=== PATIENT | male | born 1960 | race Caucasian/White ===

== ENCOUNTER → 2016-03-04 | Day surgery (SDC) | payer OTHER ==
[~2016-03-04] VITALS: Ht 167.6 cm; Wt 77.1 kg
[~2016-03-04] MED LIST: ESCITALOPRAM20 MG PO; GUAFENESIN400 MG PO; MEDROL DOSEPAK1 PAC PO; PROTONIX 40MG T40 MG PO; PROVENTIL0.09 MG/A1 INH; ROBITUSSIN W/CO10 ML PO; TESSALON PERLE100 MG PO; TRAMADOL50 MG PO; VENTOLIN H0.09 MG/Ac INH
--- NOTE | 2016-03-04 09:45 | Operative Report ---
Operative/Inv Procedure Report Surgery Date: 03/04/16 Name of Procedure: Left open carpal tunnel release. Pre-Operative Diagnosis: Left carpal tunnel syndrome. Post-Operative Diagnosis: Same. Estimated Blood Loss: scant Surgeon/Bunch Breaker: NEPTALI URIAS MD Anesthesia: laryngeal mask airway Monitors: EKG/blood pressure/oxygen saturation. IV Fluids: Lactated Ringer's. Implants: None. Urine Output: None. Drains: None. Specimens: None. Microbiology: None. Tourniquet: 18 minutes at 275 mmHg. Complications: None known. Condition: Stable. Operative Indication: The patient is a 55-year-old male with a 1+ year history of progressive bilateral hand pain and numbness and tingling. His symptoms and clinical findings were consistent with median neuropathy of the bilateral wrists ( bilateral carpal tunnel syndrome). Electrodiagnostic studies (EMG/NCS) of the patient's bilateral upper extremities showed moderately severe median neuropathy of the bilateral wrists. I believe that this affected both the motor and sensory components of the bilateral median nerves consistent with moderately severe carpal tunnel syndrome. We did discuss the risks and benefits and expected outcomes of attempted nonoperative management with cockup wrist splinting and activity modification and possible carpal canal steroid injections and a trial of B complex vitamins. The patient ultimately failed conservative management and did not wish to continue with any further attempts at conservative management. We did therefore discuss the risks and benefits and expected outcomes of operative management with staged bilateral open carpal tunnel release surgeries. The patient did wish to move forward with the same. He did wish to start with his left hand and then proceed eventually to the right hand. All the patient's questions were answered at length. He did wish to proceed with surgery and surgical consent was obtained. Operative/Procedure Note Note: The patient was brought to the operating room and placed on the operating room in the supine position. All bony prominences were well padded. The patient was given a dose of IV antibiotics for infection prophylaxis. General anesthesia was then induced by the anesthesiologist. A well-padded tourniquet was applied to the proximal portion of the left arm. The left upper extremity was then prepped and draped in the usual sterile fashion. The palm was marked for a planned volar approach to the carpal canal. This included marking the skin with a skin marker across the palm in line with the ulnar border of the radially abducted thumb. A second skin marking was made with a skin marker along the palm in line with the ulnar border of the middle finger. The intersection of these two lines was anticipated to be roughly the distal margin of the underlying transverse carpal ligament. The skin was marked for the actual palmar skin incision using the patient's natural skin creases running as close as possible from the point of intersection of these two lines in a distal to proximal direction to the level of the distal volar wrist skin flexion crease. The extremity was exsanguinated and the pneumatic tourniquet was inflated to a pressure of 275 mm Hg. The skin incision was then made with a #15 scalpel blade. Sharp dissection was carried down through the skin and subcutaneous tissue with scalpel dissection. Hemostasis was achieved with a combination of manual pressure and electrocautery. Retractors were placed in to the wound and the longitudinal fibers of the palmar fascia were visualized. The palmar fascia was then divided under direct visualization longitudinally in line with the skin incision. Retractors were repositioned deeper in to the wound and the divided palmar fascia was scraped in a radial and ulnar direction off of the underlying transverse carpal ligament. The transverse carpal ligament was then divided longitudinally in line with the skin incision under direct visualization using a scalpel to divide the central portion of the ligament and then using blunt tipped scissors to complete the division of the proximal and distal margins of the ligament after spreading the soft tissues directly above and below the ligament at these locations to isolate the fibers of the ligament. Inspection of the contents of the carpal canal was possible after division of the transverse carpal ligament and teasing the undersurface of the transverse carpal ligament away from underlying adhesions to the contents of the carpal canal. Inspection of the Median nerve within the carpal canal showed notable hypo-vascularity of the nerve. Also noted was a moderate hourglass compression of the nerve through the central portion of the carpal canal. The surrounding flexor tendons showed proliferative thickened tenosynovitis with thickened tenosynovium. A limited tenosynovectomy of the tenosynovial tissue about the flexor tendons within the carpal canal was performed sharply with a scalpel. Inspection of the median nerve also showed a thickened fibrotic appearing epineurial tissue. This thickened fibrotic epineurial tissue appeared to be continuing to compression of the median nerve itself. I did therefore elected to perform a limited epineurotomy and aponeurectomy of the volar aspect of the Median nerve epineural tissue was performed using blunt tipped scissors to spread the volar epineural tissue. This visually decompressed the hourglass constriction of the nerve and was noted to improve the microvasculature to the nerve. With the carpal canal and Median nerve now adequately decompressed, our attention was directed to closure. The wound was irrigated multiple times with saline. The tourniquet was deflated and hemostasis was achieved once again with manual pressure and electrocautery. The soft tissue repair consisted of direct approximation of the skin margins using 3-0 Prolene placed in interrupted simple fashion. The wound was washed and dried. Adaptic dressing was placed over the suture line followed by a bulky gauze dressing followed by gauze wraps to hold the gauze dressing in place. The gauze dressings were then held in place with a 2 inch Sai bandage which was applied just snug enough to hold the dressings in place and to provide gentle compression to the palmar wound after surgery. The left upper extremity was placed into a Thierno pillow for elevation. The patient was awakened from general anesthesia and then transferred to the hospital stretcher and then brought to the recovery room in stable condition having tolerated the procedure well.
== END ==
LOC: STS 03:46
DX: G56.02 Carpal tunnel syndrome, left upper limb (principal); G56.01 Carpal tunnel syndrome, right upper limb; F17.200 Nicotine dependence, unspecified, uncomplicated
CPT/HCPCS: J0131; J0690; J2250

== ENCOUNTER → 2016-04-08 | Day surgery (SDC) | payer OTHER ==
[~2016-04-08] VITALS: Ht 167.6 cm; Wt 78.0 kg
--- NOTE | 2016-04-08 09:31 | Operative Report ---
Operative/Inv Procedure Report Surgery Date: 04/08/16 Name of Procedure: Right open carpal tunnel release. Pre-Operative Diagnosis: Right carpal tunnel syndrome. Post-Operative Diagnosis: Same. Estimated Blood Loss: scant Surgeon/Television Schedule Coordinator: NEPTALI URIAS MD Anesthesia: laryngeal mask airway Monitors: EKG/blood pressure/oxygen saturation IV Fluids: Lactated Ringer's. Implants: None. Urine Output: None. Drains: None. Specimens: None. Microbiology: None. Tourniquet: 15 minutes at 275 mmHg. Complications: None known. Condition: Stable. Operative Indication: The patient is a 55-year-old male with moderate to severe bilateral carpal tunnel syndrome who was indicated to undergo staged bilateral open carpal tunnel release surgeries. The patient did undergo contralateral left open carpal tunnel release surgery about 3-4 weeks ago. He was pleased with the way that went and the response with improvement of median nerve function following contralateral carpal tunnel release. He did wish to move forward now with carpal tunnel release for the ipsilateral right side as was originally planned. We did briefly once again discussed the risks and benefits and expected outcomes of nonoperative management which was felt to not likely be successful or satisfactory. We did discuss the same with respect once again to surgical intervention with open carpal tunnel release surgery. All the patient's questions were answered at length. He did wish to move forward with right carpal tunnel release surgery and surgical consent was obtained. Operative/Procedure Note Note: The patient was brought to the operating room and placed on the operating room in the supine position. All bony prominences were well padded. The patient was given a dose of IV antibiotics for infection prophylaxis. General anesthesia was then induced by the anesthesiologist. A well-padded tourniquet was applied to the proximal portion of the right arm. The right upper extremity was then prepped and draped in the usual sterile fashion. The palm was marked for a planned volar approach to the carpal canal. This included marking the skin with a skin marker across the palm in line with the ulnar border of the radially abducted thumb. A second skin marking was made with a skin marker along the palm in line with the ulnar border of the middle finger. The intersection of these two lines was anticipated to be roughly the distal margin of the underlying transverse carpal ligament. The skin was marked for the actual palmar skin incision using the patient's natural skin creases running as close as possible from the point of intersection of these two lines in a distal to proximal direction to the level of the distal volar wrist skin flexion crease. The extremity was exsanguinated and the pneumatic tourniquet was inflated to a pressure of 275 mm Hg. The skin incision was then made with a #15 scalpel blade. Sharp dissection was carried down through the skin and subcutaneous tissue with scalpel dissection. Hemostasis was achieved with a combination of manual pressure and electrocautery. Retractors were placed in to the wound and the longitudinal fibers of the palmar fascia were visualized. The palmar fascia was then divided under direct visualization longitudinally in line with the skin incision. Retractors were repositioned deeper in to the wound and the divided palmar fascia was scraped in a radial and ulnar direction off of the underlying transverse carpal ligament. The transverse carpal ligament was then divided longitudinally in line with the skin incision under direct visualization using a scalpel to divide the central portion of the ligament and then using blunt tipped scissors to complete the division of the proximal and distal margins of the ligament after spreading the soft tissues directly above and below the ligament at these locations to isolate the fibers of the ligament. With the transverse carpal ligament now divided, inspection of the contents of the carpal canal ensued and teasing the undersurface of the transverse carpal ligament away from adhesions to the contents of the carpal canal. Inspection of the Median nerve within the carpal canal showed a moderate hourglass constriction of the nerve. Also noted was some hypo-vascularity of the nerve. A limited epineurotomy of the volar aspect of the Median nerve epineural tissue was performed using blunt tipped scissors to spread the volar epineural tissue. This visually decompressed the hourglass constriction of the nerve and was noted to improve the microvasculature to the nerve. With the carpal canal and Median nerve now adequately decompressed, our attention was directed to closure. The wound was irrigated multiple times with saline. The tourniquet was deflated and hemostasis was achieved once again with manual pressure and electrocautery. The soft tissue repair consisted of direct approximation of the skin margins using 3-0 Prolene placed in interrupted simple fashion. The wound was washed and dried. Adaptic dressing was placed over the suture line followed by a bulky gauze dressing followed by gauze wraps to hold the gauze dressing in place. The gauze dressings were then held in place with a 2 inch Sai bandage which was applied just snug enough to hold the dressings in place and to provide gentle compression to the palmar wound after surgery. The right upper extremity was placed into a Thierno pillow for elevation. The patient was awakened from general anesthesia and then transferred to the hospital stretcher and then brought to the recovery room in stable condition having tolerated the procedure well.
== END ==
LOC: STS 03:02
DX: G56.01 Carpal tunnel syndrome, right upper limb (principal); F17.200 Nicotine dependence, unspecified, uncomplicated
CPT/HCPCS: J0131; J0690; J2250; J2405

== ENCOUNTER 2016-09-09 10:40 | Inpatient (IN) | payer OTHER ==
[~2016-09-09] VITALS: Ht 167.6 cm; Wt 74.8 kg
[~2016-09-09 10:40] MED LIST changes: +AUGMENTIN 500-1 EACH PO; +CHERATUSSIN AC118 M1 PO; +ESCITALOPRAM OX20 MG PO; -ESCITALOPRAM20 MG PO; +FLONASE ALLERG9.9 ML NAS; +TESSALON PERLE100 M1 PO; +VENTOLIN HFA18 GM INH; +VITAMIN D32000 UNI1 PO
--- NOTE | 2016-09-09 10:45 | NUR ---
55 Y/O FEMALE C/O 3 EPISODES OF RECTAL BLEEDING SINCE THIS AM; REPORTS CONSTANT LOWER ABDOMINAL PAIN SINCE THIS AM; STATES HE WIPED AFTER A BOWEL MOVEMENT AND NOTICED BRIGHT RED BLOOD ON TOILET PAPER. DENIES HX HEMMORHOIDS. CURRENTLY ON MEDICATIONS FOR "LUNG INFECTION". AFEBRILE
--- NOTE | 2016-09-09 11:04 | NUR ---
MARIA SMITH AT BEDSIDE FOR PT EVAL.
--- NOTE | 2016-09-09 11:06 | ED GI/GU/ABDOMINAL COMPLAINT ---
History of Present Illness General Chief Complaint: General Adult Stated Complaint: RECTAL BLEEDING Source: patient, old records Exam Limitations: no limitations Vital Signs & Intake/Output Vital Signs & Intake/Output Vital Signs Date Time Temp Pulse Resp B/P B/P Pulse O2 O2 Flow FiO2 Mean Ox Delivery Rate 09/09 1457 97.6 48 20 124/72 96 Room Air 09/09 1346 97.0 50 20 136/81 97 Room Air 09/09 1144 53 18 128/64 98 Room Air 09/09 1143 53 128/64 09/09 1042 96.7 60 18 137/82 99 Room Air Allergies Coded Allergies: NO KNOWN ALLERGIES (02/27/16) Reconcile Medications Albuterol Sulfate (Ventolin Hfa) 90 MCG HFA.AER.AD 2 PUF INH Q4-6 PRN PRN SHORTNESS OF BREATH Augmentin (Augmentin 500-125 Tablet) 500 MG-125 MG TABLET 1 TAB PO BID SINUSITIS Benzonatate (Tessalon Perle) 100 MG CAPSULE 1 CAP PO TID PRN COUGH Cholecalciferol (Vitamin D3) (Vitamin D3) 2,000 UNIT TABLET 1 TAB PO DAILY VITAMIN SUPPORT (Reported) Codeine Phosphate/Guaifenesi (Cheratussin AC Syrup) 10 MG-100 MG/5 ML LIQUID 10 ML PO QPM PRN COUGH Escitalopram Oxalate 20 MG TABLET 1 TAB PO DAILY PER PT SLEEP (Reported) Fluticasone Propionate (Flonase Allergy Relief) 50 MCG/ACTUATION SPRAY.SUSP 1 SPRAY NILDA DAILY PRN CONGESTION Triage Note: 55 Y/O FEMALE C/O 3 EPISODES OF RECTAL BLEEDING SINCE THIS AM; REPORTS CONSTANT LOWER ABDOMINAL PAIN SINCE THIS AM; STATES HE WIPED AFTER A BOWEL MOVEMENT AND NOTICED BRIGHT RED BLOOD ON TOILET PAPER. DENIES HX HEMMORHOIDS. CURRENTLY ON MEDICATIONS FOR "LUNG INFECTION". AFEBRILE Triage Nurses Notes Reviewed? yes Onset: Abrupt Duration: day(s): (1), constant Timing: recent history Quality/Severity: cramping Severity Numbers: 6 Location: generalized abdomen Radiation: no radiation Activities at Onset: none No Modifying Factors: none Associated Symptoms: denies HPI: 55-year-old male presents to ER for evaluation after he noticed 3 episodes of blood on the toilet paper after wiping having bowel movements this morning. Patient states he is been in his normal state of health is currently on antibiotics after being diagnosed with bronchitis and seen her last week. He states that yesterday he was feeling okay woke up this morning with crampy lower abdominal pain. He states that he had a bowel movement which was harder than normal however brown. He states that when he wiped he noticed blood on the toilet paper and this happened 3 times this morning. There is no blood in the toilet bowl or mixed in with his stool there is no diarrhea. He denies nausea vomiting. He's active smoker he denies alcohol use. His abdominal surgeries are significant for splenectomy appendectomy and hernia repair (ANJALI BOO) Past History Travel History Traveled to [place] past 21 day No Medical History Any Pertinent Medical History? 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 No (ANJALI BOO) Review of Systems Review of Systems Constitutional: Reports: see HPI. Comments Review of systems: See HPI, All other systems negative. Constitutional, no chills no fever, no malaise HEENT: No visual changes no sore throat no congestion Cardiovascular: No chest pain , no palpitation Skin: no rashes, no change in skin Respiratory: No dyspnea no cough no sputum GI: No nausea no vomiting, no diarrhea, no bloating/constipation : No dysuria Muscle skeletal: No joint pain, no joint swelling, no back pain, no neck pain, Neurologic: No numbness no headache Psych: No stress ,. Heme/endocrine: No bruising Immunology: No lymphadenopathy (ANJALI BOO) Physical Exam Physical Exam General Appearance: well developed/nourished, no apparent distress, alert Gastrointestinal: soft Comments: Well-developed well-nourished person in no acute distress HEENT: Normal EENT exam; PERRL, EOMI, HEAD is atraumatic. moist mucous membranes. Neck: Supple, normal range of motion Back: Nontender, no CVA tenderness. Full range of motion Cardiovascular: Regular rate and rhythms no murmurs rubs Respiratory No respiratory distress. Patient speaking in full complete sentences. Breath sounds clear to auscultation bilaterally: NO W/R/R Abdomen: Soft, periumbilical tenderness nondistended, no appreciable organomegaly. Normal bowel sounds. No rebound/guarding, No appreciable enlargement of the abdominal aorta, No ascites. Rectal: tender. Brown stool, Heme negative stool. No mass/hemorrhoid, no fissure. Extremity: No edema, full range of motion of extremities Neuro: Alert oriented x3, motor sensory normal, There were no obvious focal neurologic abnormalities. Skin: No appreciable rash on exposed skin, skin is warm and dry. Psych: Mood and affect is normal, memory and judgment is normal. Core Measures ACS in differential dx? No Severe Sepsis Present: No Septic Shock Present: No (SARAH SIFUENTES,ANJALI) Progress Differential Diagnosis: bowel obstruction, colon cancer, diverticulitis, hernia, hemorrhoids, ischemic bowel, inflamm bowel dis, perforated viscous, SBO, anal fissure,fistula Plan of Care: Orders Procedure Date/time Status CBC WITHOUT DIFFERENTIAL 09/10 0600 Active BASIC ELECTROLYTES PLUS BUN&CR 09/10 0600 Active Clear Liquid Diet 09/09 D Active CBC WITHOUT DIFFERENTIAL 09/09 2000 Active TYPE & SCREEN (NOT X-MATCH) 09/09 1450 Active Intake & Output 09/09 1419 Active Pathway - chart 09/09 1406 Active Pathway - chart 09/09 1403 Active House Staff 09/09 1403 Active Patient Data 09/09 1403 Active Code Status 09/09 1403 Active OXYGEN SETUP (GEN) 09/09 1328 Active Saline Lock 09/09 1328 Active Admit to inpatient 09/09 1328 Active Vital Signs 09/09 1328 Active Activity/Ambulation 09/09 1328 Active Code Status 09/09 1328 Complete Patient Data 09/09 1325 Active MISTAKE 09/09 1113 Active TROPONIN LEVEL 09/09 1113 Complete COMPREHENSIVE METABOLIC PANEL 09/09 1113 Complete CBC WITHOUT DIFFERENTIAL 09/09 1113 Complete EKG 09/09 1113 Active TRC EVALUATION (GEN) 09/09 UNK Active INCENTIVE SPIROMETRY TRX (GEN) 09/09 UNK Active CONTIN. POSITIVE AIRWAY PRESS 09/09 UNK Active VTE Mechanical Prophylaxis 09/09 UNK Active PHYSICIAN CONSULT 09/09 UNK Active Current Medications Sig/Rowena Start time Last Medication Dose Stop Time Status Admin Escitalopram Oxalate 20 MG DAILY 09/10 1000 AC (Lexapro) Nicotine 14 MG DAILY 09/10 1000 AC (Nicotine Cq) Ramelteon 8 MG AT BEDTIME 09/09 2200 AC (Rozerem) Senna 187 MG AT BEDTIME 09/09 220 AC (Senokot) Sodium Chloride 1,000 ML ONCE ONE 09/09 1500 AC (Normal Saline 0.9%) 09/10 0419 Docusate Sodium 100 MG BID 09/09 1448 AC (Colace) Acetaminophen 650 MG Q6P PRN 09/09 1415 AC (Tylenol) Morphine Sulfate 2 MG Q4P PRN 09/09 1415 AC (Morphine) Oxycodone/ 1 TAB Q6P PRN 09/09 1415 AC Acetaminophen (Percocet) Laboratory Tests 09/09/16 1123: Anion Gap 9, Estimated GFR > 60, BUN/Creatinine Ratio 16.7, Glucose 81, Calcium 9.4, Total Bilirubin 1.1, AST 24, ALT 37, Alkaline Phosphatase 69, Troponin I < 0.01, Total Protein 6.3, Albumin 3.8, Globulin 2.5, Albumin/Globulin Ratio 1.5, CBC w Diff NO MAN DIFF REQ, RBC 4.99, MCV 90.8, MCH 30.6, RDW 13.3, MPV 8.5, Gran % 61.4, Lymphocytes % 20.3 L, Monocytes % 13.5 H, Eosinophils % 4.1, Basophils % 0.7, Absolute Granulocytes 9.6 H, Absolute Lymphocytes 3.2, Absolute Monocytes 2.1 H, Absolute Eosinophils 0.6, Absolute Basophils 0.1, PUBS MCHC 33.7 Labs ordered old records reviewed CAT scan ordered IV fluids running orthostatics negative case discussed with Dr. ventura Patiently held his lab results CAT scan findings reports pain is slightly improved remains afebrile I discussed with him however the incidental findings on the CT including possible ileus discussed with him that I believe premature discharge would medically harmful or bleed bowel rest, given elevated white blood cell count 15,000 I discussed with them that I believe staying for admission for IV antibiotics possible GI consult would be beneficial which the patient is agreement with. Case discussed with Dr. capps will admit (SARAH SIFUENTES,ANJALI) Diagnostic Imaging: Viewed by Me: CT Scan. Discussed w/RAD: CT Scan. Radiology Impression: PATIENT: ANDREW JOSHUA PRESENT AGE: 55 PATIENT ACCOUNT NO: [id number] : 60 LOCATION: [facility] ORDERING PHYSICIAN: ANJALI SIFUENTES SERVICE DATE: 09/09/16 EXAM TYPE: CAT - CT ABD & PELVIS W IV CONTRAST EXAMINATION: CT ABDOMEN AND PELVIS WITH CONTRAST CLINICAL INFORMATION: Lower quadrant abdominal pain and cramping. Assess for diverticulitis. COMPARISON: CTA of the chest 10/03/2014. TECHNIQUE: Multidetector volumetric imaging was performed of the abdomen following administration of 95 mL of Optiray 320 intravenous contrast. Sagittal and coronal reformatted images were obtained on the technologist workstation. DLP: 282.89 mGy-cm. FINDINGS: LUNG BASES: There is dependent atelectasis in the lower lung zones bilaterally. There are no pericardial or pleural effusions. LIVER, GALLBLADDER, AND BILIARY TREE: The liver is normal in size, shape, and attenuation. No focal hepatic lesion or biliary ductal dilatation is present. The gallbladder is normal with no evidence of radiopaque gallstones, gallbladder wall thickening, or pericholecystic inflammatory changes. PANCREAS: The pancreas appears normal. SPLEEN: The spleen is again noted to be small. It is lobular and measures 4.3 x 2.7 cm with small calcifications. ADRENAL GLANDS: There is mild fullness of the left adrenal gland, similar compared to the prior study. The right adrenal gland appears normal. KIDNEYS, BLADDER AND URETERS: The kidneys are normal in size, shape, and attenuation. No hydronephrosis, hydroureter, or calculi are seen. There is no perinephric stranding. The urinary bladder is well -distended and appears normal. GASTROINTESTINAL TRACT: The stomach appears normal. The small bowel loops are mildly prominent and contain a small amount of fluid. The appendix is not discretely identified. The cecum is poorly distended. There are moderate diverticulosis changes in the distal descending colon with more extensive changes in the sigmoid colon. There is thickening of the wall of the proximal and mid sigmoid colon, but no significant increased density in the pericolonic fat is demonstrated. There are no focal fluid collections. PELVIS: The prostate gland is nonenlarged. There is no free fluid in the pelvis. LYMPHOVASCULAR STRUCTURES: There is no pelvic or retroperitoneal lymphadenopathy. The vascular structures are unremarkable. BONES AND SURROUNDING SOFT TISSUES: There are degenerative changes in the lower lumbar spine. There are no suspicious lytic or sclerotic foci. There are degenerative changes in the sacroiliac joints bilaterally. IMPRESSION: 1. There is thickening of the bowel wall in the proximal and mid sigmoid colon region with evidence of relatively extensive diverticulosis. However, there is no significant inflammatory change in the pericolonic fat. There is mild prominence of the small bowel loops in the mid abdomen and on the left, which may be consistent with focal ileus. The findings are most consistent with diverticulosis and mild diverticulitis changes , but an infiltrative process in the sigmoid colon cannot be excluded due to the thickening of the bowel wall. The should be correlated with the patient's clinical presentation. 2. The spleen is small and calcified, a chronic finding. DICTATED BY: SABINE CROOK MD DATE/TIME DICTATED:09/09/161241 INCOME TAX EXPERT :MEENAKSHI DATE/TIME TRANSCRIBED:09/09/161241 CONFIDENTIAL, DO NOT COPY WITHOUT APPROPRIATE AUTHORIZATION. <Electronically signed in Other Vendor System> SIGNED BY: SABINE CROOK MD 09/09/16 1304 Initial ED EKG: normal intervals, normal p-waves, normal QRS complex, normal sinus rhythm (70) (ANJALI BOO) Departure Departure Time of Disposition: 1315 Disposition: STILL A PATIENT Condition: Stable Clinical Impression Primary Impression: Diverticulitis Referrals: SHAHIDA BAUER MD (PCP/Family) Departure Forms: Customer Survey General Discharge Information Admission Note Spoke With: ANDREEA CAPPS MD Documentation of Exam: Documentation of any treatments & extenuating circumstances including Concerns Regarding Discharge (functional status, medication knowledge or non-compliance, living conditions, etc.) that warrant an admission rather than observation: [IV antibiotics IV fluids and bowel rest GI consult premature discharge medically harmful (ANJALI BOO) PA/MASONRY CONTRACTOR Co-Sign Statement Statement: ED Attending supervision documentation- x I saw and evaluated the patient. I have also reviewed all the pertinent lab results and diagnostic results. I agree with the findings and the plan of care as documented in the PA's/MASONRY CONTRACTOR's documentation. [] I have reviewed the ED Record and agree with the PA's/MASONRY CONTRACTOR's documentation. [] Additions or exceptions (if any) to the PAs/MASONRY CONTRACTOR's note and plan are summarized below: [] (JOSE CASTRO,ANEL)
--- NOTE | 2016-09-09 11:25 | NUR ---
BLOOD DRAWN AND SENT-SST,LAV,BLUE,OWENS,PINK. EKG DONE BY CATRACHITA RM.
[2016-09-09 11:37] LABS: ABSOLUTE BASOPHIL COUNT 0.1 /CUMM (0.0-0.2); ABSOLUTE EOSINOPHIL COUNT 0.6 /CUMM (0.0-0.7); ABSOLUTE GRANULOCYTE CT 9.6 /CUMM (1.4-6.5); ABSOLUTE LYMPH COUNT 3.2 /CUMM (1.2-3.4); ABSOLUTE MONOCYTE COUNT 2.1 /CUMM (0.10-0.60); BASOPHIL % 0.7 % (0.0-2.0); EOSINOPHIL % 4.1 % (0-5); GRANULOCYTE % 61.4 % (42.2-75.2); HEMATOCRIT 45.3 % (42-52); MEAN CORPUSCULAR HGB 30.6 PG (27.0-31.0); MEAN CORPUSCULAR HGB CONC 33.7 G/DL (33.0-37.0); MEAN CORPUSCULAR VOLUME 90.8 FL (80.0-94.0); MEAN PLATELET VOLUME 8.5 FL (7.4-10.4); PLATELET COUNT 298 /CUMM (130-400); RBC DISTRIBUTION WIDTH 13.3 % (11.5-14.5); RED BLOOD CELL CT 4.99 /CUMM (4.70-6.10); WHITE BLOOD CELL COUNT 15.6 /CUMM (4.8-10.8)
--- NOTE | 2016-09-09 12:31 | NUR ---
PT TO AND FROM CAT SCAN BY STRETCHER.
--- NOTE | 2016-09-09 13:04 | CT SCAN REPORT ---
EXAMINATION: CT ABDOMEN AND PELVIS WITH CONTRAST CLINICAL INFORMATION: Lower quadrant abdominal pain and cramping. Assess for diverticulitis. COMPARISON: CTA of the chest 10/03/2014. TECHNIQUE: Multidetector volumetric imaging was performed of the abdomen following administration of 95 mL of Optiray 320 intravenous contrast. Sagittal and coronal reformatted images were obtained on the technologist workstation. DLP: 282.89 mGy-cm. FINDINGS: LUNG BASES: There is dependent atelectasis in the lower lung zones bilaterally. There are no pericardial or pleural effusions. LIVER, GALLBLADDER, AND BILIARY TREE: The liver is normal in size, shape, and attenuation. No focal hepatic lesion or biliary ductal dilatation is present. The gallbladder is normal with no evidence of radiopaque gallstones, gallbladder wall thickening, or pericholecystic inflammatory changes. PANCREAS: The pancreas appears normal. SPLEEN: The spleen is again noted to be small. It is lobular and measures 4.3 x 2.7 cm with small calcifications. ADRENAL GLANDS: There is mild fullness of the left adrenal gland, similar compared to the prior study. The right adrenal gland appears normal. KIDNEYS, BLADDER AND URETERS: The kidneys are normal in size, shape, and attenuation. No hydronephrosis, hydroureter, or calculi are seen. There is no perinephric stranding. The urinary bladder is well-distended and appears normal. GASTROINTESTINAL TRACT: The stomach appears normal. The small bowel loops are mildly prominent and contain a small amount of fluid. The appendix is not discretely identified. The cecum is poorly distended. There are moderate diverticulosis changes in the distal descending colon with more extensive changes in the sigmoid colon. There is thickening of the wall of the proximal and mid sigmoid colon, but no significant increased density in the pericolonic fat is demonstrated. There are no focal fluid collections. PELVIS: The prostate gland is nonenlarged. There is no free fluid in the pelvis. LYMPHOVASCULAR STRUCTURES: There is no pelvic or retroperitoneal lymphadenopathy. The vascular structures are unremarkable. BONES AND SURROUNDING SOFT TISSUES: There are degenerative changes in the lower lumbar spine. There are no suspicious lytic or sclerotic foci. There are degenerative changes in the sacroiliac joints bilaterally. IMPRESSION: 1. There is thickening of the bowel wall in the proximal and mid sigmoid colon region with evidence of relatively extensive diverticulosis. However, there is no significant inflammatory change in the pericolonic fat. There is mild prominence of the small bowel loops in the mid abdomen and on the left, which may be consistent with focal ileus. The findings are most consistent with diverticulosis and mild diverticulitis changes, but an infiltrative process in the sigmoid colon cannot be excluded due to the thickening of the bowel wall. The should be correlated with the patient's clinical presentation. 2. The spleen is small and calcified, a chronic finding.
--- NOTE | 2016-09-09 13:25 | NUR ---
PT MEDICATED WITH TORADOL AND ROCEPHINE PER EMAR. PHARMACY CALLED FOR FLAGYL. 2ND LITER OF NS INFUSING PER EMAR.
--- NOTE | 2016-09-09 13:37 | History & Physical ---
SHAGUFTA CASTRO,[facility] 09/09/16 1336: General Information and HPI MD Statement: I have seen and personally examined ANDREW SANDERS and documented this H&P. The patient is a 55 year old M who presented with a patient stated chief complaint of [blood per rectum]. Source of Information: patient Exam Limitations: no limitations History of Present Illness: Mr. Sanders is a 55-year-old gentleman with a PMH of tobacco dependence, insomnia, SALEEM on nocturnal CPAP, history of adenomatous polyps and internal hemorrhoids on colonoscopy 2010 who presents with complaints of bright red blood per rectum and upper respiratory symptoms. Patient wants in his usual state of health until this morning when he started having the sudden lower abdominal discomfort and an urge to go to the bathroom. He noticed some blood on the toilet paper when he wiped himself after having a bowel movement 3 times this morning. The stool was harder than usual but denies melena. Also denies any fevers, chills, nausea, vomiting, diarrhea, significant weight changes or recent travel history. Reports an episode of lightheadedness when coming to the hospital, which lasted for 5 minutes and then resolved on its own. Denies any loss of consciousness. Patient also reports difficulty breathing.shortness of breath, sore throat and productive cough with significant post nasal drip for the past 6 weeks but for the past past 3 weeks the sypmtoms has been worsening. He gets these violent coughing spells that makes him lightheaded. Last Thursday he went to the urgent care clinic and was prescribed Augmentin 500mg twice a day, Flonase, Ventolin, albuterol, cough suppressant and lozenges. Allergies/Medications Allergies: Coded Allergies: NO KNOWN ALLERGIES (02/27/16) Home Med list Albuterol Sulfate (Ventolin Hfa) 90 MCG HFA.AER.AD 2 PUF INH Q4-6 PRN PRN SHORTNESS OF BREATH Augmentin (Augmentin 500-125 Tablet) 500 MG-125 MG TABLET 1 TAB PO BID SINUSITIS Benzonatate (Tessalon Perle) 100 MG CAPSULE 1 CAP PO TID PRN COUGH Cholecalciferol (Vitamin D3) (Vitamin D3) 2,000 UNIT TABLET 1 TAB PO DAILY VITAMIN SUPPORT (Reported) Codeine Phosphate/Guaifenesi (Cheratussin AC Syrup) 10 MG-100 MG/5 ML LIQUID 10 ML PO QPM PRN COUGH Escitalopram Oxalate 20 MG TABLET 1 TAB PO DAILY PER PT SLEEP (Reported) Fluticasone Propionate (Flonase Allergy Relief) 50 MCG/ACTUATION SPRAY.SUSP 1 SPRAY NILDA DAILY PRN CONGESTION Past History Travel History Traveled to [place] past 21 day No Medical History Neurological: NONE EENT: NONE Cardiovascular: hyperlipidemia Respiratory: obstructive sleep apnea Gastrointestinal: NONE Hepatic: NONE Renal: NONE Musculoskeletal: NONE Psychiatric: depression Endocrine: NONE Blood Disorders: NONE Cancer(s): NONE 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 EENTM: Reports: no symptoms. Cardiovascular: Reports: no symptoms. Respiratory: Reports: cough, short of breath, sputum production. GI: Reports: abdominal pain, bloody stool. Genitourinary: Reports: no symptoms. Musculoskeletal: Reports: no symptoms. Skin: Reports: no symptoms. Neurological/Psychological: Reports: no symptoms. Hematologic/Endocrine: Reports: no symptoms. Immunologic/Allergic: Reports: no symptoms. All Other Systems: Reviewed and Negative Exam & Diagnostic Data Last 24 Hrs of Vital Signs/I&O Vital Signs Date Time Temp Pulse Resp B/P B/P Pulse O2 O2 Flow FiO2 Mean Ox Delivery Rate 09/09 1834 Room Air 09/09 1600 Room Air 09/09 1519 Room Air 09/09 1457 97.6 48 20 124/72 96 Room Air 09/09 1346 97.0 50 20 136/81 97 Room Air 09/09 1144 53 18 128/64 98 Room Air 09/09 1143 53 128/64 09/09 1042 96.7 60 18 137/82 99 Room Air Intake & Output 09/09 1600 09/09 0800 09/09 0000 Intake Total 2000 Output Total Balance 2000 Intake, IV 1999 Patient 166 lb Weight Weight Reported by Patient Measurement Method Physical Exam General Appearance Alert, Oriented X3, Cooperative Skin No Rashes, No Breakdown HEENT Atraumatic, PERRLA, EOMI, Mucous Membr. moist/pink Neck Supple, No JVD, No thryomegaly Cardiovascular Regular Rate, Normal S1, Normal S2, No Murmurs Lungs Clear to Auscultation, Normal Air Movement Abdomen Normal Bowel Sounds, Soft, No Hepatospenomegaly, No Masses, Tenderness in suprapubic region, prominent surgical scars in RLQ and LUQ Extremities No Clubbing, No Cyanosis, No Edema, Normal Pulses Last 24 Hrs of Labs/Meir: Laboratory Tests 09/09/16 1123: Anion Gap 9, Estimated GFR > 60, BUN/Creatinine Ratio 16.7, Glucose 81, Calcium 9.4, Total Bilirubin 1.1, AST 24, ALT 37, Alkaline Phosphatase 69, Troponin I < 0.01, Total Protein 6.3, Albumin 3.8, Globulin 2.5, Albumin/Globulin Ratio 1.5, CBC w Diff NO MAN DIFF REQ, RBC 4.99, MCV 90.8, MCH 30.6, RDW 13.3, MPV 8.5, Gran % 61.4, Lymphocytes % 20.3 L, Monocytes % 13.5 H, Eosinophils % 4.1, Basophils % 0.7, Absolute Granulocytes 9.6 H, Absolute Lymphocytes 3.2, Absolute Monocytes 2.1 H, Absolute Eosinophils 0.6, Absolute Basophils 0.1, PUBS MCHC 33.7 Assessment/Plan Assessment: Mr. Sanders is a 55-year-old gentleman with a PMH of tobacco dependence, insomnia, SALEEM on nocturnal CPAP, history of adenomatous polyps and internal hemorrhoids on colonoscopy 2010 who presents with complaints of bright red blood per rectum and upper respiratory symptoms. Assessment/Plan: Lower GI bleed. Most likely secondary to internal hemorrhoids versus diverticular bleed. * CT shows mild acute diverticulitis. Will hold antibiotics for now. In case of fever, worsening abdominal pain or persistent leukocytosis we'll start the patient on antibiotics. We'll monitor H&H for now and start the patient on clear liquid diet. * GI consulted awaiting recommendations, * Patient has been typed and screened. * Leukocytosis likely secondary to reactive response in the setting of GI bleed. Upper respiratory infection: * Will start the patient on albuterol Inhaler PRN. Obstructive sleep apnea: * On CPAP History of tobacco dependence: 1 PPD x 21 years * Nicotine patch 14 mg DVT prophylaxis: ALPs Full code As Ranked By This Provider Problem List: 1. Diverticulitis 2. Upper respiratory disease 3. Cough Core Measures/Miscellaneous Acute Coronary Syndrome ACS Diagnosis: No Cerebrovascular Accident CVA/TIA Diagnosis: No Congestive Heart Failure CHF Diagnosis: No VTE (View Protocol) VTE Risk Factors: Acute medical illness, Age > 40, Smoking [facility] V[facility] prophylaxis d/t: No contraindications No VTE Pharm Prophylaxis d/t: Active bleeding VTE Diagnosis: No VTE Type: NONE VTE Confirmed by (Test): NONE Sepsis (View Protocol) Severe Sepsis Present: No Septic Shock Septic Shock Present: No Miscellaneous Documentation Attending Case Discussed With: BAKARI JOHNSON MD Primary Care Physician: SHAHIDA BAUER MD Patient sees these Specialists . Level of Patient Care: General Medicine LEONARDO BAL 09/09/16 1425: Resident Review Statement Resident Statement: examined this patient, discussed with recruiting internship, agreed with recruiting internship, reviewed EMR data (avail), discussed with case mgmt, reviewed images Other Findings: Mr. Sanders is a 55-year-old gentleman with a PMH of tobacco dependence, insomnia, SALEEM on nocturnal CPAP, history of adenomatous polyps and internal hemorrhoids on colonoscopy 2010 who presents with complaints of bright red blood per rectum and upper respiratory symptoms. Over the past 6 weeks he reports productive sputum cough with yellow sputum mostly in the mornings that has worsened over the past 3 weeks to what he describes as difficulty breathing/shortness of breath most noticeable in warm/ she made whether. During this time he also endorses a sore throat for which she went to the urgent treatment Center last Thursday and was prescribed Augmentin 500 mg BID Flonase, Ventolin, albuterol, cough suppressant and lozenges. This morning while at work she experienced sudden onset lower abdominal pain localized below the umbilicus that he describes as a generalized discomfort with the urge to use the bathroom. He reports having a bowel movement that was harder than normal with noticeable blood with wiping. This happened a total of 3 times prompting him to come to the ED. VS admission: BP 137/82, HR 60, RR 18, SPO2 99% on RA, T 96.7 Pertinent physical exam findings: AAO, in no acute distress. Mucous membranes pink and moist. RRR, normal S1/S2. Lungs CTA BL. Normal bowel sounds with tenderness to light palpation over the suprapubic region. Well-healed surgical incision sites over the left upper quadrant and right lower quadrants of the abdomen. Pertinent labs: WBC 15.6, H&H 15.3/45.3, platelets 298K, sodium 138, potassium 4.4, chloride 105, bicarbonate 24, BUN/CR 15/0.9, glucose 81 CT abdomen pelvis: Thickening of the bowel wall in the proximal and mid sigmoid colon region with evidence of relative extensive diverticulosis. No significant inflammatory change in the pericolonic fat. Mild evidence of small bowel loops in the mid abdomen and on the left which may be consistent with focal ileus. Findings are most consistent diverticulosis and mild diverticulitis changes but an infiltrative process in the sigmoid colon cannot be excluded due to the thickening of the bowel wall. Spleen is small and calcified, chronic finding. Problem list: 1. Bright red blood per rectum 2. Diverticulosis/diverticulitis 3. Elevated leukocytosis 4. History of tobacco dependence 5. SALEEM on nocturnal CPAP Plan: * Full admission to general medicine for management of lower GI bleed. Based on presentation this is likely secondary to internal hemorrhoids versus diverticular bleed * In the context of equivocal findings on CAT scan, will defer initiating antimicrobial therapy for diverticulitis at this time. If patient does have worsening abdominal pain or fevers, would obtain blood cultures, start patient empirically on ceftriaxone and metronidazole * GI consult for recommendations of GI bleed. Patient has been typed and screened. CBC Q8 clear liquids at this time pending GI recommendations * Leukocytosis likely secondary to reactive response in the setting of GI bleed. Close monitoring for fevers * History of tobacco dependence at 1 PPD. Nicotine patch 14 mg * DVT prophylaxis: ALPs * Full code BAKARI JOHNSON 09/10/16 1646: Attending MD Review Statement Attending Statement Attending MD Statement: examined this patient, discuss w/resident/PA/DIE KEEPER, agreed w/resident/PA/DIE KEEPER, reviewed EMR data (avail), discussed with nursing, discussed with case mgmt Attending Assessment/Plan: please see my separate attending note for more details.
--- NOTE | 2016-09-09 13:38 | NUR ---
FLAGYL INFUSING PER EMAR.
--- NOTE | 2016-09-09 14:12 | NUR ---
PT TO ROOM 211 BED 1
--- NOTE | 2016-09-09 14:19 | NUR ---
REPORT GIVEN TO RECEIVING RN ANGELIQUE TO 2NB
--- NOTE | 2016-09-09 14:28 | NUR ---
IVF AND ANTIBIOTICS COMPLETE. FLUSHED WITHOUT DIFFICULTY. AMBULATORY TO BATHROOM WITH STRONG STEADY GAIT. OFFERS NO COMPLAINTS AT THIS TIME
[2016-09-09 14:57] VITALS: BP 124/72
--- NOTE | 2016-09-09 15:00 | NUR ---
NSG NOTE: PATIENT ARRIVED TO FLOOR FROM ED AT 1500 VIA STRETCHER ACCOMPANIED BY DISTRIBUTION; PATIENT A/OX3; RA; VS COMPLETED BY MST; PATIENT STATES PAIN IS 5/10 TO LOWER ABDOMEN; PATIENT WEARING GLASSES; PPRESENT AT THE BEDSIDE; ORIENTED TO ROOM; CALL WOMACK IN REACH; WILL CONT TO MONITOR
--- NOTE | 2016-09-09 16:36 | Admission Certification ---
Admission Certification Certification Statement - As attending physician, I certify that at the time of - admission, based on clinical presentation, severity of - symptoms, need for further diagnostic testing and - therapeutic interventions, and risk of adverse outcomes - without in-hospital treatment, in my clinical assessment, - this patient requires an acute hospital stay for a minimum - of two nights or longer. I have also considered psychsocial - factors such as support system, advanced age, financial - issues, cognitive issues, and failed out-patient treatments, - past re-admission history, safety of patient, and lack of - compliance as applicable. Specific rationale supporting this admission is: Lower GI bleed, ? acute diverticulitis
--- NOTE | 2016-09-09 16:43 | PN- Att Addend ---
Attending MD Review Statement Attending Statement Attending MD Statement: examined this patient, discuss w/resident/PA/ELECTROTYPE CASTER, agreed w/resident/PA/ELECTROTYPE CASTER, discussed with family, reviewed EMR data (avail), discussed w/ nursing Attending Assessment/Plan: 55-year-old male with a PMH of tobacco dependence with 20 Plus pack year history , SALEEM on nocturnal CPAP, history of adenomatous polyps and internal hemorrhoids on colonoscopy 2010 who presents with complaints of bright red blood per rectum and upper respiratory symptoms. Pts URI symptoms started few weeks ago and was started on last thursday on flonase, augmentin, cough medications and proventil by ER. Pt had hard BM this am post which he had BRBPR, pt has had 3 BM this am. Pt normally is not constipated and goes 2 times a day. BRBPR- lower GI bleed- likely secondary to internal hemorrhoids. Less likely diverticular bleed. would get GI consult. monitor H/H. CT finding of mild acute diverticulitis. If pts abdominal pain does not improve or wbc does not resolve , will start pt on iv abx tomorrow am. d/w pt the importance of quitting smoking, he also has exposure to passive smoking as his smokes. d/w pt the care plan.
[2016-09-09 21:00] LABS: ABSOLUTE BASOPHIL COUNT 0.1 /CUMM (0.0-0.2); ABSOLUTE GRANULOCYTE CT 8.3 /CUMM (1.4-6.5); BASOPHIL % 0.5 % (0.0-2.0); EOSINOPHIL % 6.3 % (0-5); HEMATOCRIT 43.9 % (42-52); MEAN CORPUSCULAR HGB 30.4 PG (27.0-31.0); MEAN CORPUSCULAR HGB CONC 33.1 G/DL (33.0-37.0); MEAN CORPUSCULAR VOLUME 91.9 FL (80.0-94.0); PLATELET COUNT 292 /CUMM (130-400); RBC DISTRIBUTION WIDTH 13.7 % (11.5-14.5); RED BLOOD CELL CT 4.78 /CUMM (4.70-6.10); WHITE BLOOD CELL COUNT 15.4 /CUMM (4.8-10.8)
[2016-09-09 22:21] VITALS: BP 106/70
[2016-09-10 04:50] VITALS: BP 112/64
--- NOTE | 2016-09-10 07:59 | Cons- Gastroenterology ---
General Information and HPI Consulting Request Date of Consult: 09/10/16 (MD [facility]ILLE[facility]/GASTROENTEROLOGY) Requested By: ELIZABETH CASTRO,BAKARI Cortez Reason for Consult: Hematochezia Source of Information: patient History of Present Illness: 55-year-old white male who has had more than 1 week of respiratory symptoms including congestion and cough, and has been treated for both sinusitis and upper respiratory infection, with multiple antibiotics. Normally he has 2 formed bowel movements per day, no abdominal pain, rare heartburn, and no blood per rectum. His appetite has been normal and weight stable. He had a screening colonoscopy by Dr. Palacio 2010, without adenomatous polyps, and with internal hemorrhoids. There was no description of diverticulosis. 2 days ago the patient had slight constipation with difficulty evacuating. Yesterday morning he had 3 hard/small bowel movements, some straining, and blood on the toilet paper each time, but not seen in the bowl or on the stool. He had one further such movement with slight blood in the hospital. He also developed lower abdominal pain, worse with defecation, but continuous. The pain is still there this morning, but has improved. There has been no associated dysuria or upper abdominal pain.. Yesterday, the patient did have some subjective fever, with chills and sweats, and dizziness. Allergies/Medications Allergies: Coded Allergies: NO KNOWN ALLERGIES (02/27/16) Home Med List: Albuterol Sulfate (Ventolin Hfa) 90 MCG HFA.AER.AD 2 PUF INH Q4-6 PRN PRN SHORTNESS OF BREATH Augmentin (Augmentin 500-125 Tablet) 500 MG-125 MG TABLET 1 TAB PO BID SINUSITIS Benzonatate (Tessalon Perle) 100 MG CAPSULE 1 CAP PO TID PRN COUGH Cholecalciferol (Vitamin D3) (Vitamin D3) 2,000 UNIT TABLET 1 TAB PO DAILY VITAMIN SUPPORT (Reported) Codeine Phosphate/Guaifenesi (Cheratussin AC Syrup) 10 MG-100 MG/5 ML LIQUID 10 ML PO QPM PRN COUGH Escitalopram Oxalate 20 MG TABLET 1 TAB PO DAILY PER PT SLEEP (Reported) Fluticasone Propionate (Flonase Allergy Relief) 50 MCG/ACTUATION SPRAY.SUSP 1 SPRAY NILAD DAILY PRN CONGESTION Current Medications: Current Medications Sig/Rowena Start time Last Medication Dose Route Stop Time Status Admin Acetaminophen 650 MG Q6P PRN 09/09 1415 AC PO Albuterol Sulfate 3 ML Q4P PRN 09/09 1845 AC INH Ceftriaxone Sodium 0 .STK-MED ONE 09/09 1326 DC .ROUTE Ceftriaxone Sodium 1,000 MG ONCE ONE 09/09 1315 DC 09/09 IV 09/09 1316 1325 Docusate Sodium 100 MG BID 09/09 1448 AC 09/09 PO 2240 Enoxaparin Sodium 40 MG DAILY 09/09 1403 DC SC Escitalopram Oxalate 20 MG DAILY 09/10 1000 AC PO Ketorolac 0 .STK-MED ONE 09/09 1325 DC Tromethamine .ROUTE Ketorolac 30 MG ONCE ONE 09/09 1315 DC 09/09 Tromethamine IV 09/09 1316 1325 Metronidazole 500 MG ONCE ONE 09/09 1315 DC 09/09 N/A 1 UNIT IV 09/09 1414 1336 Morphine Sulfate 2 MG Q4P PRN 09/09 1415 AC 09/10 IV 0441 Nicotine 14 MG DAILY 09/10 1000 AC 09/09 TOP 1848 Oxycodone/ 1 TAB Q6P PRN 09/09 1415 AC 09/09 Acetaminophen PO 1852 Ramelteon 8 MG AT BEDTIME 09/09 2200 AC 09/09 PO 2240 Senna 187 MG AT BEDTIME 09/09 2200 AC 09/09 PO 2240 Sodium Chloride 1,000 ML ONCE ONE 09/09 1500 DC 09/09 IV 09/10 0419 1544 Sodium Chloride 1,000 ML BOLUS ONE 09/09 1315 DC 09/09 IV 09/09 1414 1325 Sodium Chloride 1,000 ML BOLUS ONE 09/09 1115 DC 09/09 IV 09/09 1214 1125 Past History Travel History Traveled to [place] past 21 day No Medical History Blood Transfusion Hx: No Neurological: NONE EENT: NONE Cardiovascular: hyperlipidemia Respiratory: obstructive sleep apnea Gastrointestinal: NONE Hepatic: NONE Renal: NONE Musculoskeletal: NONE Psychiatric: depression Endocrine: NONE Blood Disorders: NONE Cancer(s): NONE 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 Home Services at Home: None Smoking Status: Current Everyday Smoker (1 PPD) ETOH Use: occasional use Review of Systems Review of Systems Constitutional: Reports: diaphoresis. Denies: unexplained weight loss. EENTM: Denies: icterus, epistaxis. Cardiovascular: Denies: chest pain, edema. Respiratory: Reports: cough. Denies: sputum production. GI: Reports: see HPI. Genitourinary: Denies: dysuria, hematuria. Musculoskeletal: Denies: muscle stiffness, neck pain. Skin: Denies: jaundice, lesions. Neurological/Psychological: Denies: cognitive dysfunction, confusion. Hematologic/Endocrine: Denies: bruising, bleeding, polyuria, polydipsia. Exam & Diagnostic Data Vital Signs and I&O Vital Signs Date Time Temp Pulse Resp B/P B/P Pulse O2 O2 Flow FiO2 Mean Ox Delivery Rate 09/10 0450 98.0 50 14 112/64 97 CPAP 09/10 0031 57 95 09/09 2310 48 95 09/09 2221 97.9 45 20 106/70 97 Room Air 09/09 1834 Room Air 09/09 1600 Room Air 09/09 1519 Room Air 09/09 1457 97.6 48 20 124/72 96 Room Air 09/09 1346 97.0 50 20 136/81 97 Room Air 09/09 1144 53 18 128/64 98 Room Air 09/09 1143 53 128/64 09/09 1042 96.7 60 18 137/82 99 Room Air Intake & Output 09/10 0400 09/09 1600 09/09 0400 09/08 1600 09/08 0400 Intake Total 167 798 2692 Output Total 200 Balance 463 692 0134 Intake, IV 307 543 8249 Intake, Oral 120 Output, Urine 200 Patient 166 lb Weight Weight Reported by Patient Measurement Method Physical Exam: Well-developed, well-nourished white male no apparent distress. Alert and oriented with normal cognition. Skin with multiple tattoos. No jaundice, rash, lesion, petechiae/purpura. No adenopathy. Sclera anicteric. Oropharynx normal. Tongue normal. Neck supple without thyromegaly or mass. Heart regular rhythm without murmur. Lungs clear anterolaterally. Abdomen is soft and nondistended with normal bowel sounds; there is tenderness in the left lower quadrant and suprapubic area, with no associated mass or fullness. There is no organomegaly. Extremities without clubbing, cyanosis or edema. Pulses are normal. Results Pertinent Lab Results: Laboratory Tests 09/10 09/09 0640 2009 Chemistry Sodium Pending Potassium Pending Chloride Pending Carbon Dioxide Pending Anion Gap Pending BUN Pending Creatinine Pending BUN/Creatinine Ratio Pending Hematology CBC w Diff Pending NO MAN DIFF REQ WBC (4.8 - 10.8 /CUMM) Pending 15.4 H RBC (4.70 - 6.10 /CUMM) Pending 4.78 Hgb (14.0 - 18.0 G/DL) Pending 14.6 Hct (42 - 52 %) Pending 43.9 MCV (80.0 - 94.0 FL) Pending 91.9 MCH (27.0 - 31.0 PG) Pending 30.4 RDW (11.5 - 14.5 %) Pending 13.7 Plt Count (130 - 400 /CUMM) Pending 292 MPV (7.4 - 10.4 FL) Pending 9.0 Gran % (42.2 - 75.2 %) 54.0 Lymphocytes % (20.5 - 51.1 %) 26.0 Monocytes % (1.7 - 9.3 %) 13.2 H Eosinophils % (0 - 5 %) 6.3 H Basophils % (0.0 - 2.0 %) 0.5 Absolute Granulocytes (1.4 - 6.5 /CUMM) 8.3 H Absolute Lymphocytes (1.2 - 3.4 /CUMM) 4.0 H Absolute Monocytes (0.10 - 0.60 /CUMM) 2.0 H Absolute Eosinophils (0.0 - 0.7 /CUMM) 1.0 Absolute Basophils (0.0 - 0.2 /CUMM) 0.1 PUBS MCHC (33.0 - 37.0 G/DL) Pending 33.1 09/09 1123 Chemistry Sodium (137 - 145 mmol/L) 138 Potassium (3.5 - 5.1 mmol/L) 4.4 Chloride (98 - 107 mmol/L) 105 Carbon Dioxide (22 - 30 mmol/L) 24 Anion Gap (5 - 16) 9 BUN (9 - 20 mg/dL) 15 Creatinine (0.7 - 1.2 mg/dL) 0.9 Estimated GFR (>60 ml/min) > 60 BUN/Creatinine Ratio (7 - 25 %) 16.7 Glucose (65 - 99 mg/dL) 81 Calcium (8.4 - 10.2 mg/dL) 9.4 Total Bilirubin (0.2 - 1.3 mg/dL) 1.1 AST (17 - 59 U/L) 24 ALT (21 - 72 U/L) 37 Alkaline Phosphatase (< 127 U/L) 69 Troponin I (<0.11 ng/ml) < 0.01 Total Protein (6.3 - 8.2 g/dL) 6.3 Albumin (3.5 - 5.0 g/dL) 3.8 Globulin (1.9 - 4.2 gm/dL) 2.5 Albumin/Globulin Ratio (1.1 - 2.2 %) 1.5 Hematology CBC w Diff NO MAN DIFF REQ WBC (4.8 - 10.8 /CUMM) 15.6 H RBC (4.70 - 6.10 /CUMM) 4.99 Hgb (14.0 - 18.0 G/DL) 15.3 Hct (42 - 52 %) 45.3 MCV (80.0 - 94.0 FL) 90.8 MCH (27.0 - 31.0 PG) 30.6 RDW (11.5 - 14.5 %) 13.3 Plt Count (130 - 400 /CUMM) 298 MPV (7.4 - 10.4 FL) 8.5 Gran % (42.2 - 75.2 %) 61.4 Lymphocytes % (20.5 - 51.1 %) 20.3 L Monocytes % (1.7 - 9.3 %) 13.5 H Eosinophils % (0 - 5 %) 4.1 Basophils % (0.0 - 2.0 %) 0.7 Absolute Granulocytes (1.4 - 6.5 /CUMM) 9.6 H Absolute Lymphocytes (1.2 - 3.4 /CUMM) 3.2 Absolute Monocytes (0.10 - 0.60 /CUMM) 2.1 H Absolute Eosinophils (0.0 - 0.7 /CUMM) 0.6 Absolute Basophils (0.0 - 0.2 /CUMM) 0.1 PUBS MCHC (33.0 - 37.0 G/DL) 33.7 Imaging/Other Studies: CT scan of the abdomen and pelvis, yesterday: IMPRESSION: 1. There is thickening of the bowel wall in the proximal and mid sigmoid colon region with evidence of relatively extensive diverticulosis. However, there is no significant inflammatory change in the pericolonic fat. There is mild prominence of the small bowel loops in the mid abdomen and on the left, which may be consistent with focal ileus. The findings are most consistent with diverticulosis and mild diverticulitis changes, but an infiltrative process in the sigmoid colon cannot be excluded due to the thickening of the bowel wall. The should be correlated with the patient's clinical presentation. 2. The spleen is small and calcified, a chronic finding. Assessment/Plan Assessment/Recommendations: 1. Hematochezia. Minor, outlet bleeding (on toilet tissue only), with no drop in hemoglobin. Likely represents hemorrhoidal bleeding. Differential diagnosis includes colitis, although there was no blood admixed with the stool. 2. Lower abdominal pain. Leukocytosis, although this may be secondary to respiratory infection. CT scan suggests possible uncomplicated diverticulitis, and the pain and tenderness support this. Differential includes colitis, perhaps antibiotic associated. The pain has improved overnight. Recommendations * Continue clear liquid diet today * Continue broad spectrum antibiotics * No investigation of hematochezia is necessary * Stool for C. difficile toxin Copies To: SHAHIDA BAUER MD Consult Acknowledgment - Thank you for your consult request.
[2016-09-10 08:12] LABS: ABSOLUTE BASOPHIL COUNT 0.1 /CUMM (0.0-0.2); ABSOLUTE EOSINOPHIL COUNT 0.9 /CUMM (0.0-0.7); ABSOLUTE GRANULOCYTE CT 10.9 /CUMM (1.4-6.5); ABSOLUTE LYMPH COUNT 2.8 /CUMM (1.2-3.4); ABSOLUTE MONOCYTE COUNT 1.8 /CUMM (0.10-0.60); BASOPHIL % 0.4 % (0.0-2.0); EOSINOPHIL % 5.3 % (0-5); GRANULOCYTE % 66.3 % (42.2-75.2); HEMATOCRIT 44.4 % (42-52); MEAN CORPUSCULAR HGB 30.5 PG (27.0-31.0); MEAN CORPUSCULAR HGB CONC 32.8 G/DL (33.0-37.0); MEAN CORPUSCULAR VOLUME 93.1 FL (80.0-94.0); MEAN PLATELET VOLUME 8.9 FL (7.4-10.4); PLATELET COUNT 289 /CUMM (130-400); RBC DISTRIBUTION WIDTH 13.6 % (11.5-14.5); RED BLOOD CELL CT 4.77 /CUMM (4.70-6.10); WHITE BLOOD CELL COUNT 16.4 /CUMM (4.8-10.8)
--- NOTE | 2016-09-10 14:22 | PN- Att Addend ---
Attending MD Review Statement Attending Statement Attending MD Statement: examined this patient, discuss w/resident/PA/IT WEB DEVELOPMENT CONSULTANT, agreed w/resident/PA/IT WEB DEVELOPMENT CONSULTANT, reviewed EMR data (avail), discussed w/nursing, discussed w/ case mgmt Attending Assessment/Plan: pt seen and examined at bedside. still having high wbc and still having abdominal pain. started back on ceftriaxone and flagyl. d/w pt the care plan. if getting better by tomorrow will advance diet.
--- NOTE | 2016-09-10 14:25 | PN- Housestaff ---
Subjective Follow-up For: Diverticulitis Subjective: She was complaining of the lower abdomen pain 6/10 in intensity. Also complaining of cough and chills at night. Denies fever, nausea, vomiting, shortness of breath or chest pain. Review of Systems Constitutional: Reports: no symptoms. EENTM: Reports: no symptoms. Cardiovascular: Reports: no symptoms. Respiratory: Reports: cough. Gastrointestinal: Reports: abdominal pain. Genitourinary: Reports: no symptoms. Musculoskeletal: Reports: no symptoms. Skin: Reports: no symptoms. Neurological/Psychological: Reports: no symptoms. Hematologic/Endocrine: Reports: no symptoms. Immunologic/Allergic: Reports: no symptoms. Objective Last 24 Hrs of Vital Signs/I&O Vital Signs Date Time Temp Pulse Resp B/P B/P Pulse O2 O2 Flow FiO2 Mean Ox Delivery Rate 09/10 1446 98.0 64 16 110/70 96 Room Air 09/10 0800 Room Air 09/10 0450 98.0 50 14 112/64 97 CPAP 09/10 0031 57 95 09/09 2310 48 95 09/09 2221 97.9 45 20 106/70 97 Room Air 09/09 1834 Room Air Intake & Output 09/10 1600 09/10 0800 09/10 0000 Intake Total 1920 375 420 Output Total 200 Balance 1920 375 220 Intake, IV 120 375 300 Intake, Oral 1800 120 Number 2 Bowel Movements Output, Urine 200 Physical Exam General Appearance: Alert, Oriented X3, Cooperative Skin: No Rashes, No Breakdown HEENT: Atraumatic, PERRLA, EOMI, Mucous Membr. moist/pink Cardiovascular: Regular Rate, Normal S1, Normal S2, No Murmurs Lungs: Clear to Auscultation, Normal Air Movement Abdomen: Normal Bowel Sounds, Soft, No Hepatospenomegaly, No Masses, tenderness in left lower quadrant. Current Medications: Current Medications Sig/Rowena Start time Last Medication Dose Route Stop Time Status Admin Acetaminophen 650 MG Q6P PRN 09/09 1415 AC PO Albuterol Sulfate 3 ML Q4P PRN 09/09 1845 AC INH Ceftriaxone Sodium 1,000 MG DAILY 09/10 1037 AC 09/10 IV 1342 Docusate Sodium 100 MG BID 09/09 1448 AC 09/10 PO 0853 Escitalopram Oxalate 20 MG DAILY 09/10 1000 AC 09/10 PO 0853 Metronidazole 500 MG Q8 09/10 1400 AC 09/10 N/A 1 UNIT IV 1342 Metronidazole 500 MG DAILY 09/10 1037 DC N/A 1 UNIT IV Morphine Sulfate 2 MG Q4P PRN 09/09 1415 AC 09/10 IV 1511 Nicotine 14 MG DAILY 09/10 1000 AC 09/09 TOP 1848 Oxycodone/ 1 TAB Q6P PRN 09/09 1415 AC 09/09 Acetaminophen PO 1852 Ramelteon 8 MG AT BEDTIME 09/09 2200 AC 09/09 PO 2240 Senna 187 MG AT BEDTIME 09/09 2200 AC 09/09 PO 2240 Sodium Chloride 1,000 ML ONCE ONE 09/09 1500 DC 09/09 IV 09/10 0419 1544 Last 24 Hrs of Lab/Meir Results Last 24 Hrs of Labs/Mics: Laboratory Tests 09/10/16 0640: Anion Gap 7, Estimated GFR > 60, BUN/Creatinine Ratio 12.0, CBC w Diff NO MAN DIFF REQ, RBC 4.77, MCV 93.1, MCH 30.5, RDW 13.6, MPV 8.9, Gran % 66.3, Lymphocytes % 16.8 L, Monocytes % 11.2 H, Eosinophils % 5.3 H, Basophils % 0.4, Absolute Granulocytes 10.9 H, Absolute Lymphocytes 2.8, Absolute Monocytes 1.8 H, Absolute Eosinophils 0.9, Absolute Basophils 0.1, PUBS MCHC 32.8 L 09/09/16 2010: CBC w Diff NO MAN DIFF REQ, RBC 4.78, MCV 91.9, MCH 30.4, RDW 13.7, MPV 9.0, Gran % 54.0, Lymphocytes % 26.0, Monocytes % 13.2 H, Eosinophils % 6.3 H, Basophils % 0.5, Absolute Granulocytes 8.3 H, Absolute Lymphocytes 4.0 H, Absolute Monocytes 2.0 H, Absolute Eosinophils 1.0, Absolute Basophils 0.1, PUBS MCHC 33.1 Assessment/Plan Assessment: Lower GI bleed. Most likely secondary to internal hemorrhoids versus diverticular bleed. * CT shows mild acute diverticulitis. Patient has persistent leukocytosis and was started on IV ceftriaxone and Flagyl. * We'll monitor H&H for now. * Patient on clear liquid diet. * Patient has been typed and screened. * Pain control with morphine. Upper respiratory infection: * Will start the patient on albuterol Inhaler PRN. Obstructive sleep apnea: * On CPAP History of tobacco dependence: 1 PPD x 21 years * Nicotine patch 14 mg Problem List: 1. Diverticulitis 2. Bronchitis Pain Ratin Pain Location: Left lower quadrant Pain Goal: Remain pain free Pain Plan: Pain pathway Tomorrow's Labs & Rationales: CBC(diverticulitis)
[2016-09-10 14:46] VITALS: BP 110/70
[2016-09-10 22:20] VITALS: BP 112/76
[2016-09-10 22:50] VITALS: BP 114/68
[2016-09-11 06:13] VITALS: BP 110/70
--- NOTE | 2016-09-11 07:23 | PN- Housestaff ---
Subjective Follow-up For: Diverticulitis Subjective: Patient was complaining of night sweats and chills this morning. He woke up drenched in sweats at 11pm last night. His abdominal pain has improved. He had 2 bowel movements yesterday which the patient describes as liquidy and greasy. Denies any fever, nausea, vomiting, shortness of breath. Review of Systems Constitutional: Reports: no symptoms. EENTM: Reports: no symptoms. Cardiovascular: Reports: no symptoms. Respiratory: Reports: see HPI. Gastrointestinal: Reports: see HPI. Genitourinary: Reports: no symptoms. Musculoskeletal: Reports: no symptoms. Skin: Reports: no symptoms. Neurological/Psychological: Reports: no symptoms. Hematologic/Endocrine: Reports: no symptoms. Immunologic/Allergic: Reports: no symptoms. Objective Last 24 Hrs of Vital Signs/I&O Vital Signs Date Time Temp Pulse Resp B/P B/P Pulse O2 O2 Flow FiO2 Mean Ox Delivery Rate 09/11 0613 98.0 64 18 110/70 91 Room Air 09/11 0051 96 09/10 2250 98.3 63 18 114/68 95 Room Air 09/10 2220 98.2 55 18 112/76 96 Room Air 09/10 1600 Room Air 09/10 1446 98.0 64 16 110/70 96 Room Air Intake & Output 09/11 1600 09/11 0800 09/11 0000 Intake Total 200 20 Output Total 200 Balance 0 20 Intake, IV 200 20 Output, Stool 200 Physical Exam General Appearance: Alert, Oriented X3, Cooperative Skin: No Rashes, No Breakdown, No Significant Lesion HEENT: Atraumatic, PERRLA, EOMI, Mucous Membr. moist/pink Neck: Supple, No JVD, No thryomegaly Cardiovascular: Regular Rate, Normal S1, Normal S2, No Murmurs Lungs: Clear to Auscultation, Normal Air Movement Abdomen: Normal Bowel Sounds, Soft, No Hepatospenomegaly, No Masses, tenderness in left lower quadrant. Extremities: No Clubbing, No Cyanosis, No Edema, Normal Pulses, No Tenderness/ Swelling Current Medications: Current Medications Sig/Rowena Start time Last Medication Dose Route Stop Time Status Admin Acetaminophen 650 MG Q6P PRN 09/09 1415 AC PO Albuterol Sulfate 3 ML Q4P PRN 09/09 1845 AC INH Ceftriaxone Sodium 1,000 MG DAILY 09/10 1037 AC 09/11 IV 1015 Docusate Sodium 100 MG BID 09/09 1448 AC 09/11 PO 1015 Escitalopram Oxalate 20 MG DAILY 09/10 1000 AC 09/11 PO 1015 Metronidazole 500 MG Q8 09/10 1400 AC 09/11 N/A 1 UNIT IV 0657 Morphine Sulfate 2 MG Q4P PRN 09/09 1415 AC 09/11 IV 1239 Nicotine 14 MG DAILY 09/10 1000 AC 09/11 TOP 1015 Oxycodone/ 1 TAB Q6P PRN 09/09 1415 AC 09/09 Acetaminophen PO 1852 Polyethylene Glycol 17 GM DAILY 09/11 1000 AC PO Polyethylene Glycol 17 GM ONCE ONE 09/10 2345 DC 09/11 PO 09/10 2346 0136 Ramelteon 8 MG AT BEDTIME 09/09 2200 AC 09/10 PO 2329 Senna 187 MG AT BEDTIME 09/09 2200 AC 09/10 PO 2329 Last 24 Hrs of Lab/Meir Results Last 24 Hrs of Labs/Mics: Laboratory Tests 09/11/16 0840: Hemoglobin A1c 5.6, CBC w Diff NO MAN DIFF REQ, RBC 4.88, MCV 91.9, MCH 30.4, RDW 13.6, MPV 8.9, Gran % 69.4, Lymphocytes % 16.6 L, Monocytes % 11.6 H, Eosinophils % 1.9, Basophils % 0.5, Absolute Granulocytes 12.6 H, Absolute Lymphocytes 3.0, Absolute Monocytes 2.1 H, Absolute Eosinophils 0.3, Absolute Basophils 0.1, PUBS MCHC 33.0 Microbiology 09/11 0858 STOOL: Clostridium difficile Toxin A & B - COMP Assessment/Plan Assessment: Mr Walls is a 59-year-old gentleman with a PMH of osteoarthritis, chronic pain, torn left knee meniscus, torn left rotator cuff, previous history of thyroid nodule, left tibiofibular fracture who presents with complaints of abdominal pain after a recent diagnosis of diverticulitis. Lower GI bleed. Most likely secondary to internal hemorrhoids versus diverticular bleed. * CT shows mild acute diverticulitis. Patient has persistent leukocytosis and was started on IV ceftriaxone and Flagyl. * We'll monitor H&H for now. * Patient on Full liquid diet. * Patient has been typed and screened. * Pain control with morphine. * Patient had 2 bowel movements yesterday, that were soft and greasy. Reports some melena but denies any fresh blood. Stool was guaiac negative and was sent for C. difficile toxin, will follow. Night sweats: * Last night patient woke up with night sweats and chills. According to him he has been having these night sweats for the past 6-8 months. Will do CXR, with outpatient follow up with his PCP for further workup. Upper respiratory infection: * Patient complains of dry cough, more pronounced in the morning. He thinks it' s because of the CPAP he uses at night. * Patient on albuterol Inhaler PRN. Obstructive sleep apnea: * On CPAP History of tobacco dependence: 1 PPD x 21 years * Nicotine patch 14 mg DVT prophylaxis: ALPs Full code Problem List: 1. Diverticulitis 2. Bronchitis 3. Cough Pain Ratin Pain Location: Left lower quadrant Pain Goal: Remain pain free Pain Plan: Pain Pathway Tomorrow's Labs & Rationales: CBC(diverticulitis)
--- NOTE | 2016-09-11 08:58 | RADIOLOGY REPORT ---
EXAMINATION: XR PORTABLE CHEST CLINICAL INFORMATION: Assess for lung consolidation COMPARISON: Chest x-ray from 09/03/2016 TECHNIQUE: Portable frontal view of the chest was obtained. FINDINGS: Heart size and pulmonary vascularity is within normal limits. The lungs are normally expanded and grossly clear. No focal consolidation or atelectasis is seen at this time. Some linear opacity in the right perihilar region is most likely related to overlapping vessels and rib. . There is no pneumothorax or pleural effusion. There is no change compared to the previous examination. IMPRESSION: Normally expanded and grossly clear lungs with no acute findings.
[2016-09-11 09:31] LABS: ABSOLUTE BASOPHIL COUNT 0.1 /CUMM (0.0-0.2); ABSOLUTE EOSINOPHIL COUNT 0.3 /CUMM (0.0-0.7); ABSOLUTE GRANULOCYTE CT 12.6 /CUMM (1.4-6.5); ABSOLUTE MONOCYTE COUNT 2.1 /CUMM (0.10-0.60); BASOPHIL % 0.5 % (0.0-2.0); EOSINOPHIL % 1.9 % (0-5); GRANULOCYTE % 69.4 % (42.2-75.2); HEMATOCRIT 44.9 % (42-52); MEAN CORPUSCULAR HGB 30.4 PG (27.0-31.0); MEAN CORPUSCULAR VOLUME 91.9 FL (80.0-94.0); MEAN PLATELET VOLUME 8.9 FL (7.4-10.4); PLATELET COUNT 290 /CUMM (130-400); RBC DISTRIBUTION WIDTH 13.6 % (11.5-14.5); RED BLOOD CELL CT 4.88 /CUMM (4.70-6.10); WHITE BLOOD CELL COUNT 18.2 /CUMM (4.8-10.8)
[2016-09-11 15:14] VITALS: BP 108/80
--- NOTE | 2016-09-11 15:55 | Discharge Summary ---
See Addendum Visit Information Visit Dates Admission Date: 09/09/16 Discharge Date: 09/12/16 Hospital Course Course Attending Physician: ELIZABETH CASTRO,BAKARI Cortez Primary Care Physician: ILZETTE CASTRO,[facility] Course: Mr. Sanders is a 55-year-old gentleman with a PMH of tobacco dependence, insomnia, SALEEM on nocturnal CPAP, history of adenomatous polyps and internal hemorrhoids on colonoscopy 2010 who presents with complaints of bright red blood per rectum and upper respiratory symptoms. Over the past 6 weeks he reports productive sputum cough with yellow sputum mostly in the mornings that has worsened over the past 3 weeks to what he describes as difficulty breathing/shortness of breath most noticeable in warm/ she made whether. During this time he also endorses a sore throat for which she went to the urgent treatment Center last Thursday and was prescribed Augmentin 500 mg BID Flonase, Ventolin, albuterol, cough suppressant and lozenges. This morning while at work she experienced sudden onset lower abdominal pain localized below the umbilicus that he describes as a generalized discomfort with the urge to use the bathroom. He reports having a bowel movement that was harder than normal with noticeable blood with wiping. This happened a total of 3 times prompting him to come to the ED. VS admission: BP 137/82, HR 60, RR 18, SPO2 99% on RA, T 96.7 Pertinent physical exam findings: AAO, in no acute distress. Mucous membranes pink and moist. RRR, normal S1/S2. Lungs CTA BL. Normal bowel sounds with tenderness to light palpation over the suprapubic region. Well-healed surgical incision sites over the left upper quadrant and right lower quadrants of the abdomen. Pertinent labs: WBC 15.6, H&H 15.3/45.3, platelets 298K, sodium 138, potassium 4.4, chloride 105, bicarbonate 24, BUN/CR 15/0.9, glucose 81 CT abdomen pelvis: Thickening of the bowel wall in the proximal and mid sigmoid colon region with evidence of relative extensive diverticulosis. No significant inflammatory change in the pericolonic fat. Mild evidence of small bowel loops in the mid abdomen and on the left which may be consistent with focal ileus. Findings are most consistent diverticulosis and mild diverticulitis changes but an infiltrative process in the sigmoid colon cannot be excluded due to the thickening of the bowel wall. Spleen is small and calcified, chronic finding. Patient was admitted to general medicine floor and treated for the following problems; Problem list: 1. Bright red blood per rectum 2. Diverticulosis/diverticulitis 3. Elevated leukocytosis 4. History of tobacco dependence 5. SALEEM on nocturnal CPAP Lower GI bleed. Most likely secondary to internal hemorrhoids versus diverticular bleed. Patient was started on IV ceftriaxone and Flagyl. He remained afebrile with persistent leukocytosis. Patient was made nothing by mouth and started on IV fluids with gradual advancement of diet. His H&H was monitored which remained stable. Patient was also tested for C. difficile after having multiple episodes of loose stools which came back negative. Due to persistent leukocytosis CT abdomen and pelvis was done to rule out any abscess, which came back negative. Patient was sent home on by mouth Flagyl and Ciprofloxacillin x 8 days with instructions to follow-up with PCP and Dr. Curry as an outpatient. Night sweats: * Patient reports waking up night sweats for the past 6-8 months. CXR was done which came back normal, was instructed to follow up with his PCP for further workup if he continues to have the night sweats. Upper respiratory infection: * Patient was on albuterol Inhaler PRN. Obstructive sleep apnea: * On CPAP History of tobacco dependence: 1 PPD x 21 years * Nicotine patch 14 mg DVT prophylaxis: ALPs Patient is Full code Allergies: Coded Allergies: NO KNOWN ALLERGIES (02/27/16) Disposition Summary Disposition Principal Diagnosis: Diverticulitis Additional Diagnosis: Obstructive sleep apnea Discharge Disposition: home or self care Discharge Instructions General Discharge Information Code Status: Full Code Patient's Diet: Regular Patient's Activity: As tolerated Follow-Up Instructions/Appts: Please follow-up with your PCP within a week of discharge. Please follow up with Dr. Curry within a week after discharge. Please avoid drinking alcohol while on Flagyl. Medications at Discharge Discharge Medications: Stop taking the following medications: Augmentin (Augmentin 500-125 Tablet) 500 MG-125 MG TABLET ORAL TWICE DAILY Qty = 20 Continue taking these medications: Escitalopram Oxalate (Escitalopram Oxalate) 20 MG TABLET 1 Tablet ORAL AT BEDTIME Qty = 30 Comments: Last Taken: 09/12/16 Time: 1120 Cholecalciferol (Vitamin D3) (Vitamin D3) 2,000 UNIT TABLET 1 Tablet ORAL DAILY Comments: NOT GIVEN IN HOSPITAL Albuterol Sulfate (Ventolin Hfa) 90 MCG HFA.AER.AD 2 Puff Inhale through mouth EVERY 4-6 HOURS NEEDED as needed for SHORTNESS OF BREATH Qty = 1 Comments: NOT GIVEN IN HOSPITAL Benzonatate (Tessalon Perle) 100 MG CAPSULE 1 Capsule ORAL THREE TIMES DAILY as needed for COUGH Qty = 21 Comments: NOT GIVEN IN HOSPITAL Fluticasone Propionate (Flonase Allergy Relief) 50 MCG/ACTUATION SPRAY.SUSP 1 [place] In the nose DAILY as needed for CONGESTION Qty = 1 Comments: NOT GIVEN IN HOSPITAL Codeine Phosphate/Guaifenesi (Cheratussin AC Syrup) 10 MG-100 MG/5 ML LIQUID 10 Milliliters ORAL Every night as needed for COUGH Qty = 100 Comments: NOT GIVEN IN HOSPITAL Start taking the following new medications: Metronidazole (Flagyl) 500 MG TABLET 1 Tablet ORAL THREE TIMES DAILY Qty = 24 No Refills Ciprofloxacin HCl (Cipro) 500 MG TABLET 1 Tablet ORAL TWICE DAILY Qty = 16 No Refills Morphine Sulfate (Morphine Sulfate) 15 MG TABLET 1 Tablet ORAL DAILY NEEDED as needed for ABDOMINAL PAIN Qty = 10 No Refills Comments: NOT GIVEN IN HOSPITAL Copies To: LIEZTTE CASTRO,SHAHIDA
--- NOTE | 2016-09-11 17:11 | Patient Discharge Instructions ---
Discharge Instructions General Discharge Information You were seen/treated for: Diverticulitis Watch for these problems: Worsening abdominal pain, nausea, vomiting, diarrhea Special Instructions: Please follow-up with your PCP within a week after discharge. Please follow up with your outside sales professional(Dr. Curry) within 1 month after discharge. Please avoid drinking alcohol while on Flagyl. Diet Continue normal diet: Yes Activity Full Activity/No Limits: Yes Acute Coronary Syndrome Inclusion Criteria At DC or during hospital stay patient has or had the following: ACS DIAGNOSIS No Discharge Core Measures Meds if any: Prescribed or Continued at Discharge Meds if any: NOT Prescribed or Continued at Discharge Congestive Heart Failure Inclusion Criteria At DC or during hospital stay patient has or had the following: CHF DIAGNOSIS No Discharge Core Measures Meds if any: Prescribed or Continued at Discharge Meds if any: NOT Prescribed or Continued at Discharge Cerebrovascular accident Inclusion Criteria At DC or during hospital stay patient has or had the following: CVA/TIA Diagnosis No Discharge Core Measures Meds if any: Prescribed or Continued at Discharge Meds if any: NOT Prescribed or Continued at Discharge Venous thromboembolism Inclusion Criteria VTE Diagnosis No VTE Type NONE VTE Confirmed by (Test) NONE Discharge Core Measures - Per Current guidelines, there needs to be overlap - treatment for the first 5 days of Warfarin therapy. - If discharged on Warfarin prior to 5 days of - overlap therapy, the patient will need to be - assessed for post discharge needs including - *Post discharge parental anticoagulation - *Warfarin and/or parental anticoagulation education - *Follow up date to check INR post discharge At least 5 days overlap therapy as Inpatient No Meds if any: Prescribed or Continued at Discharge Note: Overlap Therapy is Warfarin and Anticoagulant Meds if any: NOT Prescribed or Continued at Discharge
--- NOTE | 2016-09-11 17:39 | PN- Att Addend ---
Attending MD Review Statement Attending Statement Attending MD Statement: examined this patient, discuss w/resident/PA/ADVERTISING ACCOUNT EXECUTIVE, agreed w/resident/PA/ADVERTISING ACCOUNT EXECUTIVE, reviewed EMR data (avail), discussed w/nursing Attending Assessment/Plan: pt seen and examined at bedside. acute diverticulitis- still having high wbc but abdominal pain is better. Had some diarrhea- so c diff was sent will f/u on that. on ceftriaxone and flagyl. d/w pt the care plan. if getting better by tomorrow will advance diet and possible dc tomorrow.
[2016-09-11 22:36] VITALS: BP 112/78
[2016-09-12 06:51] VITALS: BP 120/72
--- NOTE | 2016-09-12 07:24 | PN- Housestaff ---
See Addendum Subjective Follow-up For: Diverticulitis Subjective: Patient reports improvement in his abdominal pain and has been able to tolerate his food well. Denies any fever, chills, vomiting, diarrhea, shortness of breath, chest pain or overnight events. Review of Systems Constitutional: Reports: no symptoms. EENTM: Reports: no symptoms. Cardiovascular: Reports: no symptoms. Respiratory: Reports: cough. Gastrointestinal: Reports: no symptoms. Genitourinary: Reports: no symptoms. Musculoskeletal: Reports: no symptoms. Skin: Reports: no symptoms. Neurological/Psychological: Reports: no symptoms. Hematologic/Endocrine: Reports: no symptoms. Immunologic/Allergic: Reports: no symptoms. Objective Last 24 Hrs of Vital Signs/I&O Vital Signs Date Time Temp Pulse Resp B/P B/P Pulse O2 O2 Flow FiO2 Mean Ox Delivery Rate 09/12 1521 100.3 60 16 118/76 95 Room Air 09/12 0651 98.4 56 20 120/72 97 Room Air 09/11 2236 98.1 64 20 112/78 97 Room Air Intake & Output 09/12 1600 09/12 0800 09/12 0000 Intake Total 100 Output Total Balance 100 Intake, IV 100 Physical Exam General Appearance: Alert, Oriented X3, Cooperative Skin: No Rashes, No Breakdown HEENT: Atraumatic, PERRLA, EOMI, Mucous Membr. moist/pink Cardiovascular: Regular Rate, Normal S1, Normal S2, No Murmurs, Gallops, Rubs Lungs: Clear to Auscultation, Normal Air Movement Abdomen: Normal Bowel Sounds, Soft, No Hepatospenomegaly, No Masses, tenderness in left lower quadrant. Neurological: Normal Gait, Normal Speech, Strength at 5/5 X4 Ext, Normal Tone, Sensation Intact, Cranial Nerves 3-12 NL, Reflexes 2+ Assessment/Plan Assessment: Mr Walls is a 59-year-old gentleman with a PMH of osteoarthritis, chronic pain, torn left knee meniscus, torn left rotator cuff, previous history of thyroid nodule, left tibiofibular fracture who presents with complaints of abdominal pain after a recent diagnosis of diverticulitis. Lower GI bleed. Most likely secondary to internal hemorrhoids versus diverticular bleed. * CT shows mild acute diverticulitis. Patient had leukocytosis and was started on IV ceftriaxone and Flagyl. * We'll monitor H&H for now. * Patient on Full liquid diet. * Patient has been typed and screened. * Pain control with morphine. * Patient is much improved clinically but still has persistent leukocytosis. Will do a CT abdomen and pelvis with and without contrast to rule out any abscesses. If CT comes back normal we will discharge the patient on oral antibiotics and outpatient follow-up with PCP within a week. Diarrhea: Resolved. Patient had 2 bowel movements, that were soft and greasy. Reports some melena but denies any fresh blood. Stool was guaiac negative and C. difficile toxin is negative. Night sweats: * Last night patient woke up with night sweats and chills. According to him he has been having these night sweats for the past 6-8 months.CXR was done which came back normal, outpatient follow up with his PCP for further workup. Upper respiratory infection: * Patient complains of dry cough, more pronounced in the morning. He thinks it' s because of the CPAP he uses at night. * Patient on albuterol Inhaler PRN. Obstructive sleep apnea: * On CPAP History of tobacco dependence: 1 PPD x 21 years * Nicotine patch 14 mg DVT prophylaxis: ALPS Full code Problem List: 1. Diverticulitis 2. Upper respiratory disease 3. Cough Pain Ratin Pain Location: Left lower quadrant Pain Goal: Remain pain free Pain Plan: Pain pathway Tomorrow's Labs & Rationales: None(possible discharge today)
[2016-09-12 08:27] LABS: ABSOLUTE BASOPHIL COUNT 0.1 /CUMM (0.0-0.2); ABSOLUTE EOSINOPHIL COUNT 0.4 /CUMM (0.0-0.7); ABSOLUTE GRANULOCYTE CT 14.1 /CUMM (1.4-6.5); ABSOLUTE LYMPH COUNT 2.2 /CUMM (1.2-3.4); ABSOLUTE MONOCYTE COUNT 2.6 /CUMM (0.10-0.60); BASOPHIL % 0.3 % (0.0-2.0); EOSINOPHIL % 2.2 % (0-5); GRANULOCYTE % 72.9 % (42.2-75.2); HEMATOCRIT 43.3 % (42-52); MEAN CORPUSCULAR HGB 30.5 PG (27.0-31.0); MEAN CORPUSCULAR HGB CONC 33.2 G/DL (33.0-37.0); MEAN CORPUSCULAR VOLUME 91.7 FL (80.0-94.0); MEAN PLATELET VOLUME 9.4 FL (7.4-10.4); PLATELET COUNT 276 /CUMM (130-400); RBC DISTRIBUTION WIDTH 13.3 % (11.5-14.5); RED BLOOD CELL CT 4.73 /CUMM (4.70-6.10); WHITE BLOOD CELL COUNT 19.4 /CUMM (4.8-10.8)
[2016-09-12 15:21] VITALS: BP 118/76
[2016-09-12] MEDS ORDERED: FLAGYL500 MG PO ×4 (15:25→17:43)
--- NOTE | 2016-09-12 15:40 | CT SCAN REPORT ---
EXAMINATION: CT ABDOMEN AND PELVIS WITH CONTRAST CLINICAL INFORMATION: Follow up complicated diverticulitis. COMPARISON: 09/09/2016. TECHNIQUE: Contiguous axial thin section helical images of the abdomen and pelvis were performed following the administration of 95 mL of intravenous Optiray 320 and without oral contrast. The data set was reformatted in the coronal and sagittal planes and reviewed on an independent workstation DLP: 323 mGy-cm. FINDINGS: LUNG BASES: Unremarkable. LIVER AND SPLEEN: Liver appears unremarkable. 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 PANCREAS GALLBLADDER AND BILIARY TREE: Gallbladder is contracted without evidence of cholelithiasis or acute cholecystitis. This is likely physiologic, stomach contains some debris suggesting a nonfasting state. Pancreas and biliary tree appear unremarkable. KIDNEYS, URETERS, AND ADRENALS: Unremarkable. URINARY BLADDER: Only partially distended limiting evaluation, however unremarkable. GI TRACT: Left-sided colonic diverticulosis is again noted. Mild soft tissue inflammatory changes at the junction of the descending and sigmoid colon have developed in the interim. There has been increase in eccentric mural thickening involving the sigmoid colon just distal to this region most consistent with mild increased in acute diverticulitis. No focal fluid collections or extraluminal gas is identified. PERITONEAL CAVITY: There is no intraperitoneal free fluid, free air, or focal masses. RETROPERITONEUM: Very mild atherosclerotic aortic calcification without aneurysmal dilatation. PELVIC ORGANS: Unremarkable OSSEOUS STRUCTURES: Unremarkable. ANTERIOR ABDOMINAL WALL AND SOFT TISSUES: Unremarkable. IMPRESSION: 1. Left-sided colonic diverticulosis with findings consistent with a slight progression of acute diverticulitis involving the distal descending and proximal sigmoid colon without evidence of a focal fluid collection or abscess. 2. Otherwise stable appearing examination.
[2016-09-12] MEDS ORDERED: CIPRO500 M1 PO ×3 (16:02→17:43)
[2016-09-12] MEDS ORDERED: MORPHINE SULFAT15 M4 PO ×3 (17:17→17:43)
== END 2016-09-12 17:50 | DRG 394 ==
LOC: ERH 10:40 → ERHI 13:28 → 2NB 13:28 → ENRESERV 13:55 → ENTRNSPT 14:20 → 2NB 14:21 → CMPTRNSPT 15:08 → 2NB 18:19 → ENPENDDIS 09-12 16:42 → 2NB 09-12 17:50
PROVIDERS: Internal Medicine; Physician Assistant Medical; ADMIT Internal Medicine
DX: K64.8 Other hemorrhoids (principal); K57.92 Diverticulitis of intestine, part unspecified, without perforation or abscess without bleeding; F32.9 Major depressive disorder, single episode, unspecified; E78.5 Hyperlipidemia, unspecified; R61 Generalized hyperhidrosis; G47.33 Obstructive sleep apnea (adult) (pediatric); J06.9 Acute upper respiratory infection, unspecified; G47.00 Insomnia, unspecified; F17.210 Nicotine dependence, cigarettes, uncomplicated; Z86.010 Personal history of colon polyps; J40 Bronchitis, not specified as acute or chronic
CPT/HCPCS: 2NBP; 36415; 74177; 82436; 93005; 93010; 96374; 96375; J0696; J1650; J1885

== ENCOUNTER 2017-04-11 12:33 | Inpatient (IN) | payer OTHER ==
[~2017-04-11] VITALS: Ht 167.6 cm; Wt 72.6 kg
[~2017-04-11 12:33] MED LIST changes: +CIPRO500 M1 PO; +FLAGYL500 MG PO; +MORPHINE SULFAT15 M4 PO
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
[2017-04-11 15:02] LABS: ABSOLUTE BASOPHIL COUNT 0.2 /CUMM (0.0-0.2); ABSOLUTE EOSINOPHIL COUNT 0.6 /CUMM (0.0-0.7); ABSOLUTE GRANULOCYTE CT 12.2 /CUMM (1.4-6.5); ABSOLUTE LYMPH COUNT 3.3 /CUMM (1.2-3.4); ABSOLUTE MONOCYTE COUNT 2.5 /CUMM (0.10-0.60); BASOPHIL % 1.2 % (0.0-2.0); EOSINOPHIL % 3.4 % (0-5); GRANULOCYTE % 64.8 % (42.2-75.2); HEMATOCRIT 46.4 % (42-52); MEAN CORPUSCULAR HGB CONC 32.9 G/DL (33.0-37.0); MEAN CORPUSCULAR VOLUME 91.2 FL (80.0-94.0); MEAN PLATELET VOLUME 8.2 FL (7.4-10.4); PLATELET COUNT 307 /CUMM (130-400); RBC DISTRIBUTION WIDTH 13.8 % (11.5-14.5); RED BLOOD CELL CT 5.08 /CUMM (4.70-6.10); WHITE BLOOD CELL COUNT 18.8 /CUMM (4.8-10.8)
--- NOTE | 2017-04-11 17:11 | CT SCAN REPORT ---
EXAMINATION: CT ABDOMEN AND PELVIS WITH CONTRAST CLINICAL INFORMATION: Suprapubic and abdominal pain. History of diverticulitis. COMPARISON: CT of the abdomen and pelvis done on 09/12/2016. TECHNIQUE: Multidetector volumetric imaging was performed of the abdomen and pelvis following IV administration of 95 mL of Optiray 320 intravenous contrast. Sagittal and coronal reformatted images were obtained on the technologist's workstation. DLP: 299.32 mGy-cm FINDINGS: LUNG BASES: The visualized lung bases are unremarkable. LIVER, GALLBLADDER, AND BILIARY TREE: The liver is normal in size, shape, and attenuation. No focal hepatic lesion or biliary ductal dilatation is present. The gallbladder is unremarkable with no evidence of radiopaque gallstones, gallbladder wall thickening, or obvious pericholecystic inflammatory changes. PANCREAS: Unremarkable. SPLEEN: Appears small, lobulated, shows punctate calcification, unchanged. ADRENAL GLANDS: There is thickening of the left adrenal gland noted, most consistent with adrenal hyperplasia, unchanged. Slight nodularity is noted measuring less than a centimeter involving the right adrenal gland, also appears unchanged. KIDNEYS AND URETERS: The kidneys are normal in size, shape, and attenuation. No hydronephrosis, hydroureter, or calculi seen. No perinephric stranding. Extrarenal pelvis is noted on the left, unchanged. BLADDER: Unremarkable. GASTROINTESTINAL TRACT: Long segment colonic wall thickening, underlying multiple colonic diverticuli and significant pericolonic inflammatory changes are noted within the proximal part of the sigmoid colon, consistent with acute sigmoid colonic diverticulitis. The site of involvement is similar to prior study dated 09/12/2016. There are no adjacent mesenteric lymphadenopathy present. There is no discrete mass identified. There is no fistula formation, pericolonic fluid collection or abscess formation identified. The remainder of the large bowel shows significant fecal residual, otherwise unremarkable. The appendix is not visualized, unchanged. The small-bowel loops are decompressed. The stomach is decompressed. ABDOMINAL WALL: No significant hernia is appreciated. LYMPH NODES: There are no pathologically enlarged retroperitoneal, mesenteric, pelvic, inguinal or groin lymphadenopathy present. Specifically, there is no sigmoid colonic mesenteric lymphadenopathy identified. VASCULAR: No significant atherosclerotic disease is seen. PELVIC VISCERA: There is no pelvic mass present. There is no free fluid and/or free air present. OSSEOUS STRUCTURES: No suspicious lytic or sclerotic abnormalities. IMPRESSION: Abnormal CT scan of the abdomen and pelvis showing features consistent with acute noncomplicated sigmoid colonic diverticulitis, similar to prior study dated 09/12/2016. This critical result was discussed with MARIA Berumen at 5:08 PM on 04/11/2017 and it was ascertained that the content and urgency of the report was understood at the time of direct communication.
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
[2017-04-11] MEDS ORDERED: ESCITALOPRAM OX10 MG PO (18:24)
--- NOTE | 2017-04-11 18:28 | Admission Certification ---
Admission Certification Certification Statement - As attending physician, I certify that at the time of - admission, based on clinical presentation, severity of - symptoms, need for further diagnostic testing and - therapeutic interventions, and risk of adverse outcomes - without in-hospital treatment, in my clinical assessment, - this patient requires an acute hospital stay for a minimum - of two nights or longer. I have also considered psychsocial - factors such as support system, advanced age, financial - issues, cognitive issues, and failed out-patient treatments, - past re-admission history, safety of patient, and lack of - compliance as applicable. Specific rationale supporting this admission is: Acute uncomplicated sigmoid colonic diverticulitis.
[2017-04-11 20:09] VITALS: BP 130/78
[2017-04-12 06:20] VITALS: BP 122/74
[2017-04-12 08:25] LABS: ABSOLUTE BASOPHIL COUNT 0.1 /CUMM (0.0-0.2); ABSOLUTE GRANULOCYTE CT 6.3 /CUMM (1.4-6.5); ABSOLUTE LYMPH COUNT 2.7 /CUMM (1.2-3.4); ABSOLUTE MONOCYTE COUNT 1.7 /CUMM (0.10-0.60); BASOPHIL % 0.6 % (0.0-2.0); EOSINOPHIL % 8.1 % (0-5); GRANULOCYTE % 53.7 % (42.2-75.2); MEAN CORPUSCULAR HGB 30.8 PG (27.0-31.0); MEAN CORPUSCULAR HGB CONC 33.5 G/DL (33.0-37.0); MEAN CORPUSCULAR VOLUME 91.7 FL (80.0-94.0); PLATELET COUNT 313 /CUMM (130-400); RBC DISTRIBUTION WIDTH 13.6 % (11.5-14.5); RED BLOOD CELL CT 4.46 /CUMM (4.70-6.10); WHITE BLOOD CELL COUNT 11.8 /CUMM (4.8-10.8)
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
[2017-04-12 09:57] LABS: HEMATOCRIT 40.9 % (42-52)
[2017-04-12 14:45] VITALS: BP 120/70
[2017-04-12 22:15] VITALS: BP 126/80
[2017-04-13 06:20] VITALS: BP 112/70
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
[2017-04-13] MEDS ORDERED: CIPRO500 M1 PO ×2 (08:07→13:19)
[2017-04-13] MEDS ORDERED: FLAGYL500 MG PO ×2 (08:07→13:19)
--- NOTE | 2017-04-13 08:08 | Patient Discharge Instructions ---
Discharge Instructions General Discharge Information You were seen/treated for: Acute diverticulitis Watch for these problems: Fever, chest pain, shortness of breath Special Instructions: Please take all medications as directed. Please follow-up with primary care and gastroenterology. Diet Continue normal diet: Yes Activity Full Activity/No Limits: Yes Acute Coronary Syndrome Inclusion Criteria At DC or during hospital stay patient has or had the following: ACS DIAGNOSIS No Discharge Core Measures Meds if any: Prescribed or Continued at Discharge Meds if any: NOT Prescribed or Continued at Discharge Congestive Heart Failure Inclusion Criteria At DC or during hospital stay patient has or had the following: CHF DIAGNOSIS No Discharge Core Measures Meds if any: Prescribed or Continued at Discharge Meds if any: NOT Prescribed or Continued at Discharge Cerebrovascular accident Inclusion Criteria At DC or during hospital stay patient has or had the following: CVA/TIA Diagnosis No Discharge Core Measures Meds if any: Prescribed or Continued at Discharge Meds if any: NOT Prescribed or Continued at Discharge Venous thromboembolism Inclusion Criteria VTE Diagnosis No VTE Type NONE VTE Confirmed by (Test) NONE Discharge Core Measures - Per Current guidelines, there needs to be overlap - treatment for the first 5 days of Warfarin therapy. - If discharged on Warfarin prior to 5 days of - overlap therapy, the patient will need to be - assessed for post discharge needs including - *Post discharge parental anticoagulation - *Warfarin and/or parental anticoagulation education - *Follow up date to check INR post discharge At least 5 days overlap therapy as Inpatient No Meds if any: Prescribed or Continued at Discharge Note: Overlap Therapy is Warfarin and Anticoagulant Meds if any: NOT Prescribed or Continued at Discharge
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
[2017-04-13 10:55] LABS: ABSOLUTE BASOPHIL COUNT 0.1 /CUMM (0.0-0.2); ABSOLUTE EOSINOPHIL COUNT 0.8 /CUMM (0.0-0.7); ABSOLUTE GRANULOCYTE CT 6.2 /CUMM (1.4-6.5); ABSOLUTE LYMPH COUNT 2.8 /CUMM (1.2-3.4); ABSOLUTE MONOCYTE COUNT 1.5 /CUMM (0.10-0.60); BASOPHIL % 0.6 % (0.0-2.0); EOSINOPHIL % 7.4 % (0-5); GRANULOCYTE % 54.8 % (42.2-75.2); MEAN CORPUSCULAR HGB 30.4 PG (27.0-31.0); MEAN CORPUSCULAR HGB CONC 32.9 G/DL (33.0-37.0); MEAN CORPUSCULAR VOLUME 92.5 FL (80.0-94.0); MEAN PLATELET VOLUME 9.3 FL (7.4-10.4); PLATELET COUNT 330 /CUMM (130-400); RBC DISTRIBUTION WIDTH 13.6 % (11.5-14.5); RED BLOOD CELL CT 4.76 /CUMM (4.70-6.10); WHITE BLOOD CELL COUNT 11.3 /CUMM (4.8-10.8)
== END 2017-04-13 13:10 | DRG 392 ==
LOC: ERH 12:33 → ERHI 17:27 → ENRESERV 18:06 → ERHI 18:26 → ENTRNSPT 19:22 → EDTRNSPTSTS 19:29 → EDTRNSPT 19:35 → 2NA 19:57 → CMPTRNSPT 20:04 → 2NA 04-13 08:53 → ENPENDDIS 04-13 11:18 → 2NA 04-13 13:10
PROVIDERS: Internal Medicine; Physician Assistant Medical; Preventive Medicine Public Health & General Preventive Medicine
DX: K57.32 Diverticulitis of large intestine without perforation or abscess without bleeding (principal); E78.5 Hyperlipidemia, unspecified; G47.33 Obstructive sleep apnea (adult) (pediatric); F32.9 Major depressive disorder, single episode, unspecified; Z90.49 Acquired absence of other specified parts of digestive tract; Z90.81 Acquired absence of spleen; F17.200 Nicotine dependence, unspecified, uncomplicated; F12.90 Cannabis use, unspecified, uncomplicated
CPT/HCPCS: 2NASP; 36415; 36592; 74177; 80307; 81001; 87040; 87086; 93005; 93010; 96374; 96375; J0131; J0696; J1650; J1885; J2405; J7042

== ENCOUNTER 2017-06-11 11:12 | Emergency (ER) | payer OTHER ==
[~2017-06-11] VITALS: Ht 167.6 cm; Wt 67.6 kg
[~2017-06-11 11:12] MED LIST changes: +ESCITALOPRAM OX10 MG PO
--- NOTE | 2017-06-11 13:43 | ED GI/GU/ABDOMINAL COMPLAINT ---
History of Present Illness General Chief Complaint: Abdominal Pain/Flank Pain Stated Complaint: ABD PAIN Source: patient, old records Exam Limitations: no limitations Vital Signs & Intake/Output Vital Signs & Intake/Output Vital Signs Date Time Temp Pulse Resp B/P B/P Pulse O2 O2 Flow FiO2 Mean Ox Delivery Rate 06/11 1426 98.6 76 18 126/88 98 Room Air 06/11 1147 98.1 62 15 118/86 95 Room Air Room Air Allergies Coded Allergies: No Known Allergies (06/11/17) Reconcile Medications Ciprofloxacin HCl (Cipro) 500 MG TABLET 1 TAB PO BID Diverticulitis . Escitalopram Oxalate 10 MG TABLET 1 TAB PO QPM Depression (Reported) Metronidazole (Flagyl) 500 MG TABLET 1 TAB PO BID Diverticulitis . Triage Note: PT SENT TO ED BY DR. PORTILLO (GI) FOR FURTHER EVALUATION OF DIVERTICULITIS. PT HAS BEEN ON PO CYPRO AND FLAGYL SINCE THURSDAY AND HAS BEEN COMPLIANT. THE PAIN BECAME SEVERE AROUND 0300 THIS MORNING. +NAUSEA, WITHOUT VOMITING BUT SOME "DRY HEAVES", DENIES DIARRHEA. AFEBRILE IN TRIAGE. Triage Nurses Notes Reviewed? yes Onset: Gradual Duration: worse persistent since (1 week) Timing: recent history Quality/Severity: cramping, sharpness, severe Severity Numbers: 9 Location: left lower quadrant, right lower quadrant Radiation: no radiation Activities at Onset: none Prior Abdominal Problems: similar symptoms Past Sexual History: Unobtainable at this time Modifying Factors: Worsens With: palpation. HPI: Patient is a 56-year-old male with history of diverticulitis presenting to the emergency Department chief complaint of worsening lower abdominal pain, nausea and has been going on for the past one week. He saw his clean in places operator about a week ago and started on Cipro and Flagyl for suspected diverticulitis. Patient has been treated for several episodes in the past. Saw his GI doctor again this morning and he recommended to come to the emergency department for imaging of his abdomen secondary to worsening symptoms despite being on antibiotics. Patient reports that he's had nausea but no vomiting. Not taking anything specifically for pain at home. Denies any diarrhea. Last bowel movement was yesterday but softer than normal. No blood in the stool. Nothing seems to make symptoms better or worse. Past History Travel History Traveled to [place] past 21 day No Medical History Any Pertinent Medical History? see below for history Neurological: NONE EENT: NONE Cardiovascular: hyperlipidemia Respiratory: obstructive sleep apnea Gastrointestinal: DIVERTICULITIS Hepatic: NONE Renal: NONE Musculoskeletal: NONE Psychiatric: NONE Endocrine: NONE Blood Disorders: NONE Cancer(s): NONE SALES OFFICER/Reproductive: NONE History of MRSA: No History of VRE: No History of CDIFF: No Surgical History Surgical History: appendectomy, hernia repair-inguinal, splenectomy Psychosocial History Who do you live with Spouse Services at Home None What is your primary language Slovenian Tobacco Use: Quit >30 days ago ETOH Use: denies use Illicit Drug Use: denies illicit drug use Family History Hx Contributory? No Review of Systems Review of Systems Constitutional: Reports: no symptoms. Comments Review of systems: See HPI, All other systems negative. Constitutional, no chills fever or weight loss HEENT: No visual changes no sore throat no congestion Cardiovascular: No chest pain ,palpitation , orthopnea or ankle swelling Skin, no jaundice no rashes Respiratory: No dyspnea cough sputum or hemoptysis GI: no vomiting : No dysuria No hematuria Muscle skeletal: no back pain, no neck pain, Neurologic: No numbness no confusion, no headaches Psych: No stress anxiety or depression,. Heme/endocrine: No bruising no bleeding no polyuria or polydipsia Immunology: No splenectomy or history of AIDS Physical Exam Physical Exam General Appearance: well developed/nourished, alert, awake, mild distress Gastrointestinal: normal bowel sounds, soft, tenderness Comments: Well-developed well-nourished person in no acute distress HEENT: Pupils equally round and reactive to light and accommodation. Nose is atraumatic. External auditory canal and Tympanic membranes clear. Pharynx normal. No swelling or edema. Moist oral mucosa. Neck: Normal inspection Back: Bilateral CVA tenderness. Full range of motion Cardiovascular: Regular rate and rhythms no murmurs rubs or gallops, normal JVP Respiratory: Chest nontender. No respiratory distress.breath sounds clear to auscultation bilaterally Abdomen: Soft, diffusely tender with guarding, no rebound tenderness, nondistended, no appreciable organomegaly. Normal bowel sounds. No ascites Extremity: No edema Neuro: Alert oriented x3 Skin: No appreciable rash on exposed skin, skin is warm and dry. Psych: Mood and affect is normal, memory and judgment is normal. Core Measures ACS in differential dx? No Sepsis Present: No Sepsis Focused Exam Completed? No Progress Differential Diagnosis: diverticulitis, perforated viscus, gastritis, pancreatitis, dehydration, show abnormality, nonspecific colitis Plan of Care: Orders Procedure Date/time Status Add-on Test (ER Only) 06/11 1603 Active LIPASE 06/11 1417 Complete AMYLASE 06/11 1417 Complete URINALYSIS 06/11 1406 Complete LACTIC ACID 06/11 1406 Complete COMPREHENSIVE METABOLIC PANEL 06/11 1406 Complete CBC WITHOUT DIFFERENTIAL 06/11 1406 Complete Laboratory Tests 06/11/17 1706: Lactic Acid Cancelled 06/11/17 1635: Urine Color YEL, Urine Clarity CLEAR, Urine pH 6.0, Ur Specific Shorter 1.010, Urine Protein NEG, Urine Ketones NEG, Urine Nitrite NEG, Urine Bilirubin NEG, Urine Urobilinogen 0.2, Ur Leukocyte Esterase NEG, Ur Microscopic SEDIMENT EXAMINED, Urine RBC 3-5, Urine WBC 1-3 H, Urine Hemoglobin TRACE-INTACT H, Urine Glucose NEG 06/11/17 1417: Anion Gap 12, Estimated GFR > 60, BUN/Creatinine Ratio 15.0, Glucose 87, Lactic Acid 0.7, Calcium 9.2, Total Bilirubin 0.9, AST 26, ALT 39, Alkaline Phosphatase 60, Total Protein 6.6, Albumin 4.0, Globulin 2.6, Albumin/Globulin Ratio 1.5, Amylase 63, Lipase 423 H, CBC w Diff NO MAN DIFF REQ, RBC 5.22, MCV 91.7, MCH 30.2, MCHC 32.9 L, RDW 13.3, MPV 8.1, Gran % 49.0, Lymphocytes % 33.1, Monocytes % 12.3 H, Eosinophils % 4.1, Basophils % 1.5, Absolute Granulocytes 5.6, Absolute Lymphocytes 3.8 H, Absolute Monocytes 1.4 H, Absolute Eosinophils 0.5, Absolute Basophils 0.2 06/11/2017 5:06:14 PM patient feeling improved after IV morphine, IV Toradol. Patient will follow-up with clean in places operator. He'll continue antibiotics previously prescribed. Patient is nontoxic in complaint. Diagnostic Imaging: Viewed by Me: CT Scan. Discussed w/RAD: CT Scan. Radiology Impression: PATIENT: ANDREW JOSHUA PRESENT AGE: 56 PATIENT ACCOUNT NO: [id number] : 60 LOCATION: [facility] ORDERING PHYSICIAN: Cristina SIFUENTES SERVICE DATE: 06/11/173081 EXAM TYPE: CAT - CT ABD & PELVIS W IV CONTRAST EXAMINATION: CT ABDOMEN AND PELVIS WITH CONTRAST CLINICAL INFORMATION: Abdominal pain. COMPARISON: 04/11/2017 TECHNIQUE: Multidetector volumetric imaging was performed of the abdomen and pelvis following IV administration of 95 mL of Optiray 320 intravenous contrast. Sagittal and coronal reformatted images were obtained on the technologist's workstation. DLP: 294.39 mGy-cm FINDINGS: LUNG BASES: The dependent atelectasis is noted at the lung bases. LIVER, GALLBLADDER, AND BILIARY TREE: The liver is normal in size, shape, and attenuation. No focal hepatic lesion or biliary ductal dilatation is present. The gallbladder is unremarkable with no evidence of radiopaque gallstones, gallbladder wall thickening, or obvious pericholecystic inflammatory changes. PANCREAS: Unremarkable SPLEEN: Some splenules are noted in the splenic fossa. This could also be a small spleen with calcifications. Appearances are unchanged since the prior study. ADRENAL GLANDS: Once again seen is thickening of the left adrenal gland which is unchanged. The right adrenal gland is unremarkable. KIDNEYS AND URETERS: The kidneys are normal in size, shape, and attenuation. Extrarenal pelvis is noted on the left. No hydronephrosis, hydroureter, or calculi seen. No perinephric stranding. BLADDER: Unremarkable GASTROINTESTINAL TRACT: The previously demonstrated inflammatory changes around the sigmoid colon consistent with diverticulitis have resolved. Currently, diverticular changes are present in the colon but the small and large bowel are otherwise unremarkable. The appendix is not seen with certainty. ABDOMINAL WALL: No significant hernia is appreciated. LYMPH NODES: Normal VASCULAR: Unremarkable PELVIC VISCERA: Unremarkable OSSEOUS STRUCTURES: Unremarkable IMPRESSION: 1. Resolution of previously detected sigmoid diverticulitis. 2. A cause for the patient's abdominal pain and guarding has not been found. DICTATED BY: Elder Bianchi MD DATE/TIME DICTATED:06/11/171604 DOG FOOD DOUGH MIXER:[id number] DATE/ TIME TRANSCRIBED:06/11/171604 CONFIDENTIAL, DO NOT COPY WITHOUT APPROPRIATE AUTHORIZATION. <Electronically signed in Other Vendor System> SIGNED BY: Elder Bianchi MD 06/11/17 1639 Initial ED EKG: none Departure Departure Time of Disposition: 1705 Disposition: HOME OR SELF CARE Condition: Stable Clinical Impression Primary Impression: Abdominal pain Qualifiers: Abdominal location: lower abdomen, unspecified Qualified Code: R10.30 - Lower abdominal pain, unspecified Referrals: Breanne Ramirez MD (PCP/Family) Additional Instructions: Follow-up with gastroenterology, call to make an appointment. Increase fluids. Take Levsin as prescribed up with abdominal pain. Return for worsening symptoms or concerns. Clear liquid diet. Departure Forms: Customer Survey General Discharge Information Prescriptions: Current Visit Scripts Ondansetron (Zofran Odt) 1 TAB SL TID PRN nausea #10 TAB Hyoscyamine (Levsin) 1 TAB PO Q4 PRN abdominal spasms #40 TAB
[2017-06-11 14:41] LABS: ABSOLUTE BASOPHIL COUNT 0.2 /CUMM (0.0-0.2); ABSOLUTE EOSINOPHIL COUNT 0.5 /CUMM (0.0-0.7); ABSOLUTE GRANULOCYTE CT 5.6 /CUMM (1.4-6.5); ABSOLUTE LYMPH COUNT 3.8 /CUMM (1.2-3.4); ABSOLUTE MONOCYTE COUNT 1.4 /CUMM (0.10-0.60); BASOPHIL % 1.5 % (0.0-2.0); EOSINOPHIL % 4.1 % (0-5); HEMATOCRIT 47.9 % (42-52); MEAN CORPUSCULAR HGB 30.2 PG (27.0-31.0); MEAN CORPUSCULAR HGB CONC 32.9 G/DL (33.0-37.0); MEAN CORPUSCULAR VOLUME 91.7 FL (80.0-94.0); MEAN PLATELET VOLUME 8.1 FL (7.4-10.4); PLATELET COUNT 358 /CUMM (130-400); RBC DISTRIBUTION WIDTH 13.3 % (11.5-14.5); RED BLOOD CELL CT 5.22 /CUMM (4.70-6.10); WHITE BLOOD CELL COUNT 11.5 /CUMM (4.8-10.8)
--- NOTE | 2017-06-11 16:39 | CT SCAN REPORT ---
EXAMINATION: CT ABDOMEN AND PELVIS WITH CONTRAST CLINICAL INFORMATION: Abdominal pain. COMPARISON: 04/11/2017 TECHNIQUE: Multidetector volumetric imaging was performed of the abdomen and pelvis following IV administration of 95 mL of Optiray 320 intravenous contrast. Sagittal and coronal reformatted images were obtained on the technologist's workstation. DLP: 294.39 mGy-cm FINDINGS: LUNG BASES: The dependent atelectasis is noted at the lung bases. LIVER, GALLBLADDER, AND BILIARY TREE: The liver is normal in size, shape, and attenuation. No focal hepatic lesion or biliary ductal dilatation is present. The gallbladder is unremarkable with no evidence of radiopaque gallstones, gallbladder wall thickening, or obvious pericholecystic inflammatory changes. PANCREAS: Unremarkable SPLEEN: Some splenules are noted in the splenic fossa. This could also be a small spleen with calcifications. Appearances are unchanged since the prior study. ADRENAL GLANDS: Once again seen is thickening of the left adrenal gland which is unchanged. The right adrenal gland is unremarkable. KIDNEYS AND URETERS: The kidneys are normal in size, shape, and attenuation. Extrarenal pelvis is noted on the left. No hydronephrosis, hydroureter, or calculi seen. No perinephric stranding. BLADDER: Unremarkable GASTROINTESTINAL TRACT: The previously demonstrated inflammatory changes around the sigmoid colon consistent with diverticulitis have resolved. Currently, diverticular changes are present in the colon but the small and large bowel are otherwise unremarkable. The appendix is not seen with certainty. ABDOMINAL WALL: No significant hernia is appreciated. LYMPH NODES: Normal VASCULAR: Unremarkable PELVIC VISCERA: Unremarkable OSSEOUS STRUCTURES: Unremarkable IMPRESSION: 1. Resolution of previously detected sigmoid diverticulitis. 2. A cause for the patient's abdominal pain and guarding has not been found.
[2017-06-11] MEDS ORDERED: LEVSIN0.125 M1 PO (17:09)
[2017-06-11] MEDS ORDERED: ZOFRAN ODT4 M1 SL (17:09)
[2017-06-11 17:21] VITALS: BP 136/92
== END 2017-06-11 17:31 ==
LOC: ERH 11:12
PROVIDERS: Physician Assistant
DX: R10.32 Left lower quadrant pain (principal); R10.31 Right lower quadrant pain
CPT/HCPCS: 74177; 81001; 96374; 96375; J1885; J2405